=== PATIENT | female | born 1950 | race Caucasian/White ===

== ENCOUNTER → 2017-01-15 | Outpatient (CLI) | payer MEDICARE ==
--- NOTE | 2017-01-15 10:56 | CT ---
EXAMINATION TYPE: CT chest wo con DATE OF EXAM: 01/15/2017 COMPARISON: Chest CT July 14, 2015 and older study January 11, 2015. HISTORY: Follow up to lung nodule per patient. Shortness of breath per order. CT DLP: 390.4 mGycm. Automated Exposure Control for Dose Reduction was Utilized. TECHNIQUE: CT scan of the thorax is performed without IV contrast. FINDINGS: LUNGS: There is redemonstration of mild biapical pleural-parenchymal scarring with slightly more nodu lar scar posterior lateral right upper lung redemonstrated measuring 7 x 6 mm on current study image 13 not significantly changed accounting for technical differences from last 2 studies. There is stabl e 5 x 3 mm subpleural nodule right lower lobe on axial image 37. There is some new peripheral atelect atic change in the right middle lobe periphery near axial image 42 just above diaphragm. No new suspi cious parenchymal nodule or mass is present bilaterally. There is no pleural effusion or pneumothorax seen bilaterally. The tracheobronchial tree is patent. MEDIASTINUM: Lack of IV contrast is noted to limit evaluation for mediastinal and especially hilar ad enopathy. There are no definitive greater than 1 cm hilar or mediastinal lymph nodes. No cardiomega ly or pericardial effusion is seen. OTHER: Liver is diffusely low dense consistent with fatty infiltration. Slight S-shaped scoliotic cur vature is redemonstrated. Multilevel spurring is redemonstrated. There is mild calcified plaque in th e aorta. Stable small hiatal hernia is redemonstrated. Stable mild diffuse low dense thickening left adrenal gland favors benign hyperplasia. IMPRESSION: Overall stable findings, documentation of 2 year stability confirms postinflammatory banda ges or scarring. No suspicious enlarging or new nodule or adenopathy is seen to suggest neoplasm.
== END | disposition home or self-care (01) ==
LOC: RADCTMAIN 09:23
PROVIDERS: ATTEND Internal Medicine Pulmonary Disease
DX: R05 Cough (principal); R06.02 Shortness of breath
CPT/HCPCS: 71250

== ENCOUNTER 2017-10-17 11:40 | Day surgery (SDC) | payer MEDICARE ==
[2017-10-12 15:32] VITALS: BMI 29.2
[~2017-10-17 11:40] MED LIST: DEXAMETHASONE SOD PHOSPHATE 10 MG/ML 1 ML VIAL IV ONE; HYDROmorphone 0.5 MG/0.5 ML SYRINGE IVP PRN; LACTATED RINGERS 1,000 ML IV SCH; MIDAZOLAM 2 MG/2 ML VIAL IV PRN; ONDANSETRON 4 MG/2 ML VIAL IVP ONE; SCOPOLAMINE 1.5MG/72HR PATCH TRANSDERM ONE
[2017-10-17 12:03] VITALS: RESP 18
[2017-10-17] MEDS ORDERED: LACTATED RINGERS 1,000 ML IV ONE (12:03)
[2017-10-17] MEDS ORDERED: LIDOCAINE 1% 20 ML VIAL (10MG/ML) FOR IV START INTRADERMA ONE (12:04)
[2017-10-17 12:06] LABS: Glucose,Whole Blood 141 mg/dL (75-99)
[2017-10-17] MEDS ORDERED: LIDOCAINE 1% INJ 10MG/ML (20 ML MDV) ONE (12:51)
[2017-10-17] MEDS ORDERED: PROPOFOL 10 MG/ML 20 ML VIAL IV ONE (12:51)
[2017-10-17] MEDS ORDERED: fentaNYL (PF) 50 MCG/ML 2 ML AMP ONE (12:51)
--- NOTE | 2017-10-17 13:08 | P.OP ---
Date of Procedure: 10/17/17 Procedure(s) Performed: PREOPERATIVE DIAGNOSES: 1. Right shoulder adhesive capsulitis POSTOPERATIVE DIAGNOSES: 1. Right shoulder adhesive capsulitis PROCEDURES PERFORMED: 1. Right shoulder manipulation under anesthesia ANESTHESIA: Regional plus sedation SORTING GRAPPLE OPERATOR: none COMPLICATIONS: None ESTIMATED BLOOD LOSS: none DISPOSITION: To post-anesthesia care unit INDICATIONS: Mrs. Spangler is a 66-year-old female with a history of adhesive capsulitis involving the right shoulder. The plan for today is manipulation of the shoulder under anesthesia. I have explained the potential risks and complications as being inclusive of, but not limited to: Recurrence of stiffness , fracture, pain, need for open or arthroscopic surgery, blood vessel and/or nerve damage, anesthesia risks, and other risks. The patient wishes to proceed and consent form has been signed. PROCEDURE: After appropriate consent was obtained, the patient was taken to the operating room placed in the supine position. Anesthesia was initiated, and after confirmation of adequate anesthesia, the patient was carefully positioned. Care was taken to make sure that all pressure points were adequately padded. No antibiotics were administered. Using Codman's paradox maneuver, the patient's right shoulder was manipulated progressively with moderate force until final range of motion showed: Forward flexion 180, abduction 180, external rotation with the arm in abduction to 80 , internal rotation with the arm at 90 of abduction to 75. No complications were noted. Patient tolerated the procedure well and taken to recovery room in stable condition.
[2017-10-17] MEDS ORDERED: IV FLUID CONTINUATION 1,000 ML IV ONE (13:35)
[2017-10-17 14:20] VITALS: BP 141/75; PULSE 91
[2017-10-17 14:25] VITALS: TEMP 98.3
[2017-10-17 14:38] LABS: Glucose,Whole Blood 183 mg/dL (75-99)
== END 2017-10-17 15:02 | disposition home or self-care (01) ==
LOC: OR 11:40
PROVIDERS: ATTEND Orthopaedic Surgery
DX: M75.01 Adhesive capsulitis of right shoulder (principal); M54.12 Radiculopathy, cervical region; J45.909 Unspecified asthma, uncomplicated; E11.9 Type 2 diabetes mellitus without complications; I10 Essential (primary) hypertension; R01.1 Cardiac murmur, unspecified; E78.5 Hyperlipidemia, unspecified; K30 Functional dyspepsia; Z79.84 Long term (current) use of oral hypoglycemic drugs; Z79.891 Long term (current) use of opiate analgesic; Z79.51 Long term (current) use of inhaled steroids; Z79.1 Long term (current) use of non-steroidal anti-inflammatories (NSAID); Z79.899 Other long term (current) drug therapy; Z88.0 Allergy status to penicillin; Z91.011 Allergy to milk products
CPT/HCPCS: 23700; J1100; J2405; J2001; J3010; J2704

== ENCOUNTER → 2018-02-04 | Outpatient (CLI) | payer MEDICARE | LOC: RADUSWWP 12:42 | PROVIDERS: ATTEND Family Medicine | DX: I73.9 Peripheral vascular disease, unspecified (principal) | CPT/HCPCS: 93923 ==

== ENCOUNTER → 2018-12-03 | Outpatient (CLI) | payer MEDICARE ==
--- NOTE | 2018-12-04 09:26 | MM ---
Reason for exam: screening (asymptomatic). Last mammogram was performed 9 years and 4 months ago. History: Patient is postmenopausal. Core biopsy of the left breast, 1998. Took estrogen for 3 years beginning at age 50. Physical Findings: A clinical breast exam by your physician is recommended on an annual basis and results should be correlated with mammographic findings. MG 3D Screening Mammo W/Cad Bilateral CC and MLO view(s) were taken. Prior study comparison: May 18, 2015, mammogram, performed at [facility]. July 20, 2009, right breast diagnostic digital nikunj. February 05, 2009, right breast mammogram dig work up. Benign appearing bilateral calcifications. No suspicious abnormality. No significant changes when compared with prior studies. ASSESSMENT: Benign, BI-RAD 2 RECOMMENDATION: Routine screening mammogram of both breasts in 1 year.
== END | disposition home or self-care (01) ==
LOC: RADMAMWWP 09:40
PROVIDERS: ATTEND Family Medicine
DX: Z12.31 Encounter for screening mammogram for malignant neoplasm of breast (principal)
CPT/HCPCS: 77063; 77067

== ENCOUNTER → 2019-06-14 | Outpatient (CLI) | payer MEDICARE ==
--- NOTE | 2019-06-14 13:47 | NM ---
EXAMINATION TYPE: NM hepatobiliary w EF DATE OF EXAM: 06/14/2019 COMPARISON: NONE HISTORY: pain TECHNIQUE: After the intravenous administration of 5.3 mCi Tc 99m Mebrofenin hepatobiliary scintigrap hy is performed. Immediate images post injection. FINDINGS: There is satisfactory initial accumulation of tracer by the liver. The gallbladder is visualized wit hin 20 minutes. The small bowel activity is noted within 22 minutes. At one hour 8 ounces of oral e nsure plus is given to mimic CCK and gallbladder ejection fraction is calculated at 94% IMPRESSION: Hypercontractile gallbladder
== END | disposition home or self-care (01) ==
LOC: RADNMMAIN 09:01
PROVIDERS: ATTEND Family Medicine
DX: K82.8 Other specified diseases of gallbladder (principal)
CPT/HCPCS: 78226; A9537

== ENCOUNTER → 2019-09-09 | Outpatient (CLI) | payer MEDICARE | END | disposition home or self-care (01) | LOC: LABWHC1 11:39 | PROVIDERS: ATTEND Surgery Plastic and Reconstructive Surgery | DX: Z11.59 Encounter for screening for other viral diseases (principal) | CPT/HCPCS: 87635 ==

== ENCOUNTER → 2019-09-11 | Day surgery (SDC) | payer MEDICARE ==
[2019-09-10 09:08] VITALS: BMI 30.2
--- NOTE | 2019-09-10 21:08 | P.GSHP ---
History of Present Illness H&P Date: 09/11/19 CHIEF COMPLAINT: Hematemesis and GI bleed HISTORY OF PRESENT ILLNESS: The patient is a 68-year-old male who presents with hematemesis and gastrointestinal bleeding. Upper and lower endoscopy were offered for further evaluation and management. PAST MEDICAL HISTORY: Please see list. PAST SURGICAL HISTORY: Please see list. MEDICATIONS: Please see list. ALLERGIES: Please see list. SOCIAL HISTORY: No illicit drug use FAMILY HISTORY: No reports of Crohn disease or ulcerative colitis. REVIEW OF ORGAN SYSTEMS: CONSTITUTIONAL: No reports of fevers or chills. PHYSICAL EXAM: VITAL SIGNS: Stable GENERAL: Well-developed pleasant in no acute distress. HEENT: No scleral icterus. Extraocular movements grossly intact. Moist buccal mucosa. NECK: Supple without lymphadenopathy. CHEST: Unlabored respirations. Equal bilateral excursions. CARDIOVASCULAR: Regular rate and rhythm. Distal 2+ pulses. ABDOMEN: Soft, nondistended. MUSCULOSKELETAL: No clubbing, cyanosis, or edema. ASSESSMENT: 1. Hematemesis 2. GI bleed PLAN: 1. Recommend proceeding with an upper and lower endoscopy Past Medical History Past Medical History: Diabetes Mellitus, Hyperlipidemia, Hypertension Additional Past Medical History / Comment(s): IBS History of Any Multi-Drug Resistant Organisms: None Reported Past Surgical History: Bladder Surgery, Hysterectomy Additional Past Surgical History / Comment(s): SINUS SX. COLONOSCOPY Past Anesthesia/Blood Transfusion Reactions: No Reported Reaction Smoking Status: Never smoker - Past Family History Father Family Medical History: Cancer Mother Family Medical History: Cancer Medications and Allergies Home Medications Medication Instructions Recorded Confirmed Type Ertugliflozin Pidolate [Steglatro] 5 mg PO DAILY 10/12/17 09/10/19 History Lisinopril-Hctz 20-25 mg 1 tab PO DAILY 10/12/17 09/10/19 History [Zestoretic 20-25] Pravastatin Sodium [Pravachol] 40 mg PO HS 10/12/17 09/10/19 History glipiZIDE [Glucotrol] 10 mg PO HS 10/12/17 09/10/19 History Docusate [Colace] 200 mg PO DAILY 09/10/19 09/10/19 History Loratadine [Claritin] 10 mg PO DAILY 09/10/19 09/10/19 History metFORMIN HCL 1,000 mg PO HS 09/10/19 09/10/19 History Allergies Allergy/AdvReac Type Severity Reaction Status Date / Time Milk Containing Products Allergy CONGESTION Verified 09/10/19 08:54 [Dairy] Penicillins Allergy Rash/Hives Verified 09/10/19 08:54
[~2019-09-11] MED LIST changes: -DEXAMETHASONE SOD PHOSPHATE 10 MG/ML 1 ML VIAL IV ONE; -HYDROmorphone 0.5 MG/0.5 ML SYRINGE IVP PRN; +LIDOCAINE 1% INJ 10MG/ML (20 ML MDV) ONE; -MIDAZOLAM 2 MG/2 ML VIAL IV PRN; +MIDAZOLAM 2 MG/2 ML VIAL ONE; -ONDANSETRON 4 MG/2 ML VIAL IVP ONE; +PROPOFOL 10 MG/ML 20 ML VIAL IV ONE; -SCOPOLAMINE 1.5MG/72HR PATCH TRANSDERM ONE; +SODIUM CHLORIDE 0.9% 1,000 ML IV ONE
[2019-09-11 07:33] VITALS: RESP 16; TEMP 97.5
[2019-09-11 07:42] LABS: Glucose,Whole Blood 203 mg/dL (75-99)
--- NOTE | 2019-09-11 07:55 | P.PCN ---
Date of Procedure: 09/11/19 Description of Procedure: PREOPERATIVE DIAGNOSIS: Gastrointestinal hemorrhage History of gastric ulcers Epigastric abdominal pain POSTOPERATIVE DIAGNOSIS: Duodenitis Gastritis. OPERATION: Esophagogastroduodenoscopy with biopsies along antrum and duodenum SURGEON: Charo Zhou MD ANESTHESIA: MAC. INDICATIONS: The patient is a 68-year-old female who presents with a history of gastrointestinal bleed and abdominal pain. Benefits and risks of the procedure were described. Informed consent was obtained. DESCRIPTION: The patient was brought into the endoscopy suite and laid in the left lateral decubitus position. An Olympus gastroscope was passed along the posterior oropharynx down to the distal esophagus where the squamocolumnar junction was encountered at 38 cm from the incisors. The stomach was entered and no bile reflux was found. Additional findings are listed below. Biopsies with cold forceps were obtained of the antrum. The first through third portion of the duodenum was examined and remarkable for duodenitis. Retroflexion of the scope confirmed Hill grade 2 lower esophageal valve. The squamocolumnar junction demonstrated LA grade A erosive esophagitis. The stomach was desufflated. The patient tolerated the procedure well. FINDINGS: Squamocolumnar junction 38 cm from the incisors. Diaphragmatic hiatus at 38 cm. Hill grade 2 lower esophageal valve. LA grade A erosive esophagitis. Active duodenitis Chronic gastritis RECOMMENDATIONS: Upper endoscopy as needed.
--- NOTE | 2019-09-11 08:12 | P.PCN ---
Date of Procedure: 09/11/19 Description of Procedure: PREOPERATIVE DIAGNOSIS: Gastrointestinal bleed Change in bowel habits POSTOPERATIVE DIAGNOSIS: Gastrointestinal bleed Change in bowel habits Ascending colon polyp OPERATION: Colonoscopy to the cecum Colonoscopy with cold forceps biopsy, ascending colon SURGEON: Charo Zhou MD. ANESTHESIA: MAC. INDICATIONS: The patient is a 68-year-old female who presents with change in bowel habits including gastrointestinal bleeding. Benefits and risks were described and informed consent was obtained. DESCRIPTION OF PROCEDURE: The patient had undergone Suprep. She had been brought into the operating room and laid in the left lateral decubitus position. After adequate intravenous sedation, the rectum was examined with 2% lidocaine jelly. No external hemorrhoids were encountered. The rectal tone was within normal limits. No lesions were palpated in the rectal vault. The colon was redundant sigmoid colon. An Olympus colonoscope was advanced to the ascending colon. The prep was good. The scope was removed with investigation of the mucosa. No large scattered diverticulosis was encountered. Ascending colon polyp 3 mm was removed with cold forceps biopsy. No evidence of focal colitis was found. Retroflexion of the scope demonstrated grade 1 internal hemorrhoids without active bleeding or inflammation. The colon was desufflated. The patient had tolerated the procedure well. Withdrawal time was over 6 minutes. FINDINGS: Aronchick preparation quality scale 2 (1-5) Internal hemorrhoids, grade 1 No external prolapsed hemorrhoids. No arteriovenous malformations. Ascending colon polyp 3 mm was removed with cold forceps biopsy. No focal colitis. RECOMMENDATIONS: Lower endoscopy in 5 years, 2024 Plan - Discharge Summary Discharge Rx Participant: No New Discharge Prescriptions: No Action glipiZIDE [Glucotrol] 10 mg PO HS Lisinopril-Hctz 20-25 mg [Zestoretic 20-25] 1 tab PO DAILY Pravastatin Sodium [Pravachol] 40 mg PO HS Ertugliflozin Pidolate [Steglatro] 5 mg PO DAILY metFORMIN HCL 1,000 mg PO HS Loratadine [Claritin] 10 mg PO DAILY Docusate [Colace] 200 mg PO DAILY Discharge Medication List Ertugliflozin Pidolate [Steglatro] 5 mg PO DAILY 10/12/17 [History] Lisinopril-Hctz 20-25 mg [Zestoretic 20-25] 1 tab PO DAILY 10/12/17 [History] Pravastatin Sodium [Pravachol] 40 mg PO HS 10/12/17 [History] glipiZIDE [Glucotrol] 10 mg PO HS 10/12/17 [History] Docusate [Colace] 200 mg PO DAILY 09/10/19 [History] Loratadine [Claritin] 10 mg PO DAILY 09/10/19 [History] metFORMIN HCL 1,000 mg PO HS 09/10/19 [History]
--- NOTE | 2019-09-11 08:16 | P.PN ---
Progress Note - Text Progress Note Date: 09/11/19 Prior to procedure, patient had tachycardia heart rate in the 120s. She denies any previous cardiac workup. She reports being nervous. She just completed a prep. Recommend 1 L of IV normal saline bolus prior to discharge.
[2019-09-11 09:12] VITALS: BP 106/65; PULSE 62
== END | disposition home or self-care (01) ==
LOC: ORWHC2ENDO 07:07
PROVIDERS: ATTEND Surgery Plastic and Reconstructive Surgery
DX: K29.50 Unspecified chronic gastritis without bleeding (principal); K29.80 Duodenitis without bleeding; K21.0 Gastro-esophageal reflux disease with esophagitis; K22.10 Ulcer of esophagus without bleeding; K63.5 Polyp of colon; K64.0 First degree hemorrhoids; K58.9 Irritable bowel syndrome, unspecified; I10 Essential (primary) hypertension; E78.5 Hyperlipidemia, unspecified; J45.909 Unspecified asthma, uncomplicated; Z87.11 Personal history of peptic ulcer disease; Z88.0 Allergy status to penicillin; Z91.011 Allergy to milk products; Z79.84 Long term (current) use of oral hypoglycemic drugs; Z79.899 Other long term (current) drug therapy; Z90.710 Acquired absence of both cervix and uterus; Z98.890 Other specified postprocedural states; Z80.9 Family history of malignant neoplasm, unspecified
CPT/HCPCS: 88305; 45380; 43239; J2250; J2001; J2704

== ENCOUNTER → 2020-07-07 | Outpatient (CLI) | payer MEDICARE ==
--- NOTE | 2020-07-07 12:15 | MR ---
EXAMINATION TYPE: MR cervical spine wo/w con DATE OF EXAM: 07/07/2020 COMPARISON: None HISTORY: Pain in neck and shoulders TECHNIQUE: Multiplanar, multisequence images of the cervical spine were acquired utilizing 7.5 mL intravenous Ga davist gadolinium contrast. Diffusion weighted imaging was performed. There is some motion on the exam, artifact or graph C2-C3: No evidence for degenerative disc disease. No disc bulge/herniation or protrusion. No Canal stenosis. Foramina are patent bilaterally. C3-C4: No evidence for degenerative disc disease. No disc bulge/herniation or protrusion. No Canal stenosis. Foramina are patent bilaterally. C4-C5: Left-sided foraminal encroachment is present due to uncovertebral joint hypertrophy and facet arthropathy, circumferential posterior extension endplate disc complex causes anterior mass effect on the thecal sac. There is a focal posterior disc herniation causing contact with the anterior cervica l cord. Only mild central canal stenosis. C5-C6: Posterior extension endplate disc complex contacts the anterior cervical cord. There is mild t o moderate central stenosis. Foraminal encroachment is present left greater than right due to uncover tebral joint hypertrophy and facet arthropathy, suspect there is a lateral disc herniation present, s agittal image #4 C6-C7: No evidence for degenerative disc disease. No disc bulge/herniation or protrusion. No Canal stenosis. Foramina are patent bilaterally. C7-T1: No evidence for degenerative disc disease. No disc bulge/herniation or protrusion. No Canal stenosis. Foramina are patent bilaterally. Cervical segments are intact. There is normal alignment. Cervical spinal cord is of normal signal. Craniovertebral junction relationships are within normal limits. Cervical vertebral bodies show pres erved height and alignment. There is spondylosis C4-5, C5-6 with associated loss of disc height and s ignal, there is some endplate discogenic marrow signal change IMPRESSION: Degenerative disc disease, disc herniations as described
== END ==
LOC: RADMRIMAIN 09:41
PROVIDERS: ATTEND Family Medicine
DX: M50.221 Other cervical disc displacement at C4-C5 level (principal); M50.30 Other cervical disc degeneration, unspecified cervical region
CPT/HCPCS: 72156; A9585

== ENCOUNTER 2020-07-24 19:41 | Emergency (ER) | payer MEDICARE ==
[2020-07-24 19:57] VITALS: TEMP 98.1
[2020-07-24] MEDS ORDERED: SODIUM CHLORIDE 0.9% 1,000 ML IV STA (20:46)
[2020-07-24 21:01] VITALS: RESP 18
[2020-07-24] MEDS ORDERED: BAMLANIVIMAB 700 MG in SODIUM CHLORIDE 0.9% 50 ML IVPB ONE (21:15)
--- NOTE | 2020-07-24 21:42 | ED ---
General Adult HPI - General Chief complaint: Recheck/Abnormal Lab/Rx Stated complaint: Covid Test Source: patient Mode of arrival: ambulatory Limitations: no limitations - History of Present Illness Initial comments: Patient is 69-year-old female presents emergency department as been who is a patient in the trauma bay. Her was found to have Covid and therefore patient is requesting testing. Patient admits to some sinus symptoms however states that this is chronic for her. Denies any new symptoms. No chest pain or shortness of breath. No fevers or chills. Denies any sick contacts. Her presentation modifying factors - Related Data Home Medications Medication Instructions Recorded Confirmed Ertugliflozin Pidolate [Steglatro] 5 mg PO DAILY 10/12/17 09/11/19 Lisinopril-Hctz 20-25 mg 1 tab PO DAILY 10/12/17 09/11/19 [Zestoretic 20-25] Pravastatin Sodium [Pravachol] 40 mg PO HS 10/12/17 09/11/19 glipiZIDE [Glucotrol] 10 mg PO HS 10/12/17 09/11/19 Docusate [Colace] 200 mg PO DAILY 09/10/19 09/11/19 Loratadine [Claritin] 10 mg PO DAILY 09/10/19 09/11/19 metFORMIN HCL 1,000 mg PO HS 09/10/19 09/11/19 Previous Rx's Medication Instructions Recorded Omeprazole [PriLOSEC] 40 mg PO DAILY #14 cap 09/11/19 Allergies Allergy/AdvReac Type Severity Reaction Status Date / Time Milk Containing Products Allergy CONGESTION Verified 07/24/20 19:56 [Dairy] Penicillins Allergy Rash/Hives Verified 07/24/20 19:56 Review of Systems ROS Statement: Those systems with pertinent positive or pertinent negative responses have been documented in the HPI. ROS Other: All systems not noted in ROS Statement are negative. Past Medical History Past Medical History: Asthma, Diabetes Mellitus, Hypertension History of Any Multi-Drug Resistant Organisms: None Reported Past Surgical History: Bladder Surgery, Hysterectomy Past Psychological History: No Psychological Hx Reported Smoking Status: Never smoker Past Alcohol Use History: None Reported Past Drug Use History: None Reported General Exam Limitations: no limitations Course Vital Signs 07/24/20 07/24/20 19:50 20:55 Temperature 98.1 F Pulse Rate 127 H 114 H Respiratory 22 18 Rate Blood Pressure 140/84 136/74 O2 Sat by Pulse 96 97 Oximetry Medical Decision Making - Medical Decision Making Upon arrival patient was placed into room 31. She is swabbed for covid which does come back positive. She does meet criteria for discharged. BAM which is administered. Heart rate is originally to be found high in triage however the patient is hysterically crying as her is critically ill. Patient will be administered Bham. Instructed follow up with her primary care doctor. Return to the emergency room for any new or worsening symptoms - Lab Data Lab Results 07/24/20 Range/Units 19:59 Coronavirus (PCR) Detected A (Not Detectd) Disposition Clinical Impression: COVID-19 Disposition: HOME SELF-CARE Condition: Stable Instructions (If sedation given, give patient instructions): Coronavirus Disease 2019 (COVID-19) Additional Instructions: Please follow-up with your primary care doctor in 2-4 days. Return to the emergency room for any new or worsening symptoms Is patient prescribed a controlled substance at d/c from ED?: No Referrals: Alexys Hurley DO [Primary Care Provider] - 1-2 days Time of Disposition: 21:42
[2020-07-24 22:43] VITALS: BP 112/76; PULSE 105
== END 2020-07-24 22:35 | disposition home or self-care (01) ==
LOC: EC 19:41
DX: U07.1 COVID-19 (principal); J45.909 Unspecified asthma, uncomplicated; E11.9 Type 2 diabetes mellitus without complications; I10 Essential (primary) hypertension
CPT/HCPCS: 87635; 99283; 96374; 96361; Q0239

== ENCOUNTER 2020-08-04 10:18 | Emergency (ER) | payer MEDICARE ==
--- NOTE | 2020-08-04 13:52 | XR ---
EXAMINATION TYPE: XR chest 2V DATE OF EXAM: 08/04/2020 COMPARISON: NONE TECHNIQUE: PA and lateral views submitted. HISTORY: Shortness of breath FINDINGS: The lungs are clear and there is no pneumothorax, pleural effusion, or focal pneumonia. Coarsened i nterstitial pattern. Degenerative change of the spine. Hyperinflation. Arthropathy of the shoulders. Biapical pleural thickening. Heart size is normal. IMPRESSION: 1. Coarsened interstitium correlate for interstitial pneumonitis. Chronic interstitial lung disease i n the differential diagnosis..
--- NOTE | 2020-08-04 14:11 | ED ---
SOB HPI - General Chief Complaint: Shortness of Breath Stated Complaint: Covid+/SOB Time Seen by Provider: 08/04/20 13:23 Source: patient Mode of arrival: wheelchair Limitations: no limitations - History of Present Illness Initial Comments: Patient is a 69-year-old female with history of asthma, diabetes, hypertension, presenting to the emergency Department with complaints of worsening shortness of breath and fatigue over the past few days. Patient states she was diagnosed with Covid on 07/24/2020. She was given Covid antiviral infusion on that day as well. She states she got tested because her was diagnosed with Covid and was in the ER in serious condition. She states at that time her only symptom was fatigue. Appetite has been low, she has been able to tolerate water and soups. She states over the past 2-3 days she's been having a little bit of diarrhea. She denies any chest pains, no abdominal pains. She does admit to some mild nausea no vomiting. She states that her did pass away today from Covid complications and that her family wanted her to be seen and checked out. She has no further complaints at this time. Upon arrival to the ER, she is afebrile, slightly tachycardia at 102, 96% on room air. - Related Data Home Medications Medication Instructions Recorded Confirmed Ertugliflozin Pidolate [Steglatro] 5 mg PO DAILY 10/12/17 09/11/19 Lisinopril-Hctz 20-25 mg 1 tab PO DAILY 10/12/17 09/11/19 [Zestoretic 20-25] Pravastatin Sodium [Pravachol] 40 mg PO HS 10/12/17 09/11/19 glipiZIDE [Glucotrol] 10 mg PO HS 10/12/17 09/11/19 Docusate [Colace] 200 mg PO DAILY 09/10/19 09/11/19 Loratadine [Claritin] 10 mg PO DAILY 09/10/19 09/11/19 metFORMIN HCL 1,000 mg PO HS 09/10/19 09/11/19 Previous Rx's Medication Instructions Recorded Omeprazole [PriLOSEC] 40 mg PO DAILY #14 cap 09/11/19 Allergies Allergy/AdvReac Type Severity Reaction Status Date / Time Milk Containing Products Allergy CONGESTION Verified 08/04/20 13:19 [Dairy] Penicillins Allergy Rash/Hives Verified 08/04/20 13:19 Review of Systems ROS Statement: Those systems with pertinent positive or pertinent negative responses have been documented in the HPI. ROS Other: All systems not noted in ROS Statement are negative. Past Medical History Past Medical History: Asthma, Diabetes Mellitus, Hypertension History of Any Multi-Drug Resistant Organisms: None Reported Past Surgical History: Bladder Surgery, Hysterectomy Past Psychological History: No Psychological Hx Reported Smoking Status: Never smoker Past Alcohol Use History: None Reported Past Drug Use History: None Reported General Exam - General Exam Comments Initial Comments: GENERAL: Patient is well-developed and well-nourished. Patient is nontoxic and in no acute distress. HEAD: Atraumatic, normocephalic. EYES: Pupils equal round and reactive to light, extraocular movements intact, sclera anicteric, conjunctiva are normal. Eyelids were unremarkable. ENT: TMs normal, nares patent, oropharynx clear without exudates. Moist mucous membranes. NECK: Normal range of motion, supple without lymphadenopathy or JVD. LUNGS: Unlabored respirations. Breath sounds clear to auscultation bilaterally and equal. No wheezes rales or rhonchi. HEART: Regular rate and rhythm without murmurs, rubs or gallops. ABDOMEN: Soft, nontender, normoactive bowel sounds. No guarding, no rebound. No masses appreciated. : Deferred MUSCULOSKELETAL: Normal extremities with adequate strength and normal range of motion, no pitting or edema. No clubbing or cyanosis. NEUROLOGICAL: Patient is alert and oriented x 3. Motor and sensory are also intact. Cranial nerves II through XII grossly intact. Symmetrical smile. Normal speech, normal gait. PSYCH: Normal mood, normal affect. SKIN: Warm, Dry, normal turgor, no rashes or lesions noted. Limitations: no limitations Course Vital Signs 08/04/20 08/04/20 08/04/20 13:14 14:50 17:08 Temperature 98.4 F 98.0 F 98.1 F Pulse Rate 102 H 92 89 Respiratory 18 20 18 Rate Blood Pressure 109/63 103/59 127/68 O2 Sat by Pulse 96 96 97 Oximetry Medical Decision Making - Medical Decision Making Patient is a 69-year-old female with history of asthma, hypertension and diabetes here for increasing shortness of breath over the last few days. Patient was diagnosed with Covid on 07/24/2020 after her tested positive. Patient did receive Covid antiviral infusion on that day. Patient's today from Covid complications and family wanted patient to be seen. Her vital signs are stable. Labs show stable white count, patient is dehydrated with sodium 131, BUN and creatinine slightly elevated from baseline, lactic acid is normal. LDH and CRP are still elevated consistent with covid infection. Urine is normal. Chest xray shows interstitial pneumonitis. Vitals have remained stable in the ER, 96-97% on RA. Patient given 1 L of fluids and able to tolerate water and snacks. Pt is stable for discharge. Return parameters were discussed with the patient and family and they verbalized understanding. Case discussed with Dr. Sherman. - Lab Data Result diagrams: 08/04/20 14:15 08/04/20 14:15 Lab Results 08/04/20 08/04/20 08/04/20 Range/Units 14:15 14:15 14:15 WBC 10.3 (3.8-10.6) k/uL RBC 5.28 (3.80-5.40) m/uL Hgb 14.5 (11.4-16.0) gm/dL Hct 41.6 (34.0-46.0) % MCV 78.9 L (80.0-100.0) fL MCH 27.5 (25.0-35.0) pg MCHC 34.8 (31.0-37.0) g/dL RDW 15.2 (11.5-15.5) % Plt Count 308 (150-450) k/uL MPV 7.2 Neutrophils % 91 % Lymphocytes % 4 % Monocytes % 3 % Eosinophils % 1 % Basophils % 0 % Neutrophils # 9.3 H (1.3-7.7) k/uL Lymphocytes # 0.5 L (1.0-4.8) k/uL Monocytes # 0.3 (0-1.0) k/uL Eosinophils # 0.1 (0-0.7) k/uL Basophils # 0.0 (0-0.2) k/uL PT 10.2 (9.0-12.0) sec INR 0.9 (<1.2) APTT 24.0 (22.0-30.0) sec D-Dimer 0.32 (<0.60) mg/L FEU Sodium 131 L (137-145) mmol/L Potassium 4.1 (3.5-5.1) mmol/L Chloride 93 L (98-107) mmol/L Carbon Dioxide 21 L (22-30) mmol/L Anion Gap 17 mmol/L BUN 44 H (7-17) mg/dL Creatinine 1.23 H (0.52-1.04) mg/dL Est GFR (CKD-EPI)AfAm 52 (>60 ml/min/1.73 sqM) Est GFR (CKD-EPI)NonAf 45 (>60 ml/min/1.73 sqM) Glucose 124 H (74-99) mg/dL Plasma Lactic Acid Santosh (0.7-2.0) mmol/L Calcium 9.1 (8.4-10.2) mg/dL Magnesium 2.1 (1.6-2.3) mg/dL Total Bilirubin 0.5 (0.2-1.3) mg/dL AST 42 H (14-36) U/L ALT 30 (4-34) U/L Alkaline Phosphatase 53 (38-126) U/L Lactate Dehydrogenase 832 H (313-618) U/L C-Reactive Protein 153.2 H (<10.0) mg/L Total Protein 7.3 (6.3-8.2) g/dL Albumin 4.1 (3.5-5.0) g/dL Urine Color Urine Appearance (Clear) Urine pH (5.0-8.0) Ur Specific [place] (1.001-1.035) Urine Protein (Negative) Urine Glucose (UA) (Negative) Urine Ketones (Negative) Urine Blood (Negative) Urine Nitrite (Negative) Urine Bilirubin (Negative) Urine Urobilinogen (<2.0) mg/dL Ur Leukocyte Esterase (Negative) Urine WBC (0-5) /hpf Ur Squamous Epith Cells (0-4) /hpf Amorphous Sediment (None) /hpf Urine Bacteria (None) /hpf 08/04/20 08/04/20 Range/Units 14:15 16:00 WBC (3.8-10.6) k/uL RBC (3.80-5.40) m/uL Hgb (11.4-16.0) gm/dL Hct (34.0-46.0) % MCV (80.0-100.0) fL MCH (25.0-35.0) pg MCHC (31.0-37.0) g/dL RDW (11.5-15.5) % Plt Count (150-450) k/uL MPV Neutrophils % % Lymphocytes % % Monocytes % % Eosinophils % % Basophils % % Neutrophils # (1.3-7.7) k/uL Lymphocytes # (1.0-4.8) k/uL Monocytes # (0-1.0) k/uL Eosinophils # (0-0.7) k/uL Basophils # (0-0.2) k/uL PT (9.0-12.0) sec INR (<1.2) APTT (22.0-30.0) sec D-Dimer (<0.60) mg/L FEU Sodium (137-145) mmol/L Potassium (3.5-5.1) mmol/L Chloride (98-107) mmol/L Carbon Dioxide (22-30) mmol/L Anion Gap mmol/L BUN (7-17) mg/dL Creatinine (0.52-1.04) mg/dL Est GFR (CKD-EPI)AfAm (>60 ml/min/1.73 sqM) Est GFR (CKD-EPI)NonAf (>60 ml/min/1.73 sqM) Glucose (74-99) mg/dL Plasma Lactic Acid Santosh 1.4 (0.7-2.0) mmol/L Calcium (8.4-10.2) mg/dL Magnesium (1.6-2.3) mg/dL Total Bilirubin (0.2-1.3) mg/dL AST (14-36) U/L ALT (4-34) U/L Alkaline Phosphatase (38-126) U/L Lactate Dehydrogenase (313-618) U/L C-Reactive Protein (<10.0) mg/L Total Protein (6.3-8.2) g/dL Albumin (3.5-5.0) g/dL Urine Color Light Yellow Urine Appearance Clear (Clear) Urine pH 5.5 (5.0-8.0) Ur Specific [place] 1.005 (1.001-1.035) Urine Protein 1+ H (Negative) Urine Glucose (UA) 3+ H (Negative) Urine Ketones Trace H (Negative) Urine Blood Trace H (Negative) Urine Nitrite Negative (Negative) Urine Bilirubin Negative (Negative) Urine Urobilinogen <2.0 (<2.0) mg/dL Ur Leukocyte Esterase Negative (Negative) Urine WBC 1 (0-5) /hpf Ur Squamous Epith Cells <1 (0-4) /hpf Amorphous Sediment Rare H (None) /hpf Urine Bacteria Rare H (None) /hpf - EKG Data EKG Comments: Normal sinus rhythm, no signs of acute ischemia. No previous to compare to. Ventricular rate 95, DC interval 160, QT 342. Disposition Clinical Impression: COVID-19 Disposition: HOME SELF-CARE Condition: Stable Instructions (If sedation given, give patient instructions): Coronavirus Disease 2019 (COVID-19) Additional Instructions: Please return to the Emergency Department if symptoms worsen or any other concerns. Continue to increase your fluid intake, increase your diet as tolerated. Follow-up with your regular family doctor. Is patient prescribed a controlled substance at d/c from ED?: No Referrals: Alexys Hurley DO [Primary Care Provider] - 1-2 days Time of Disposition: 16:43
[2020-08-04 14:27] LABS: Basophils % (A) 0 %; Eosinophils # (A) 0.1 k/uL (0-0.7); Eosinophils % (A) 1 %; HCT 41.6 % (34.0-46.0); HGB 14.5 gm/dL (11.4-16.0); Lymphocytes # (A) 0.5 k/uL (1.0-4.8); Lymphocytes % (A) 4 %; MCH 27.5 pg (25.0-35.0); MCHC 34.8 g/dL (31.0-37.0); MCV 78.9 fL (80.0-100.0); Mean Platelet Volume 7.2; Monocytes # (A) 0.3 k/uL (0-1.0); Monocytes % (A) 3 %; Neutrophils # (A) 9.3 k/uL (1.3-7.7); Neutrophils % (A) 91 %; Platelet Count 308 k/uL (150-450); RBC 5.28 m/uL (3.80-5.40); RDW 15.2 % (11.5-15.5); WBC 10.3 k/uL (3.8-10.6)
[2020-08-04 14:44] LABS: D-Dimer 0.32 mg/L FEU (<0.60); INR 0.9 (<1.2); Prothrombin Time 10.2 sec (9.0-12.0)
[2020-08-04 14:46] LABS: Albumin 4.1 g/dL (3.5-5.0); Calcium 9.1 mg/dL (8.4-10.2); Magnesium 2.1 mg/dL (1.6-2.3); Potassium 4.1 mmol/L (3.5-5.1); Total Bilirubin 0.5 mg/dL (0.2-1.3); Total Protein 7.3 g/dL (6.3-8.2)
[2020-08-04 15:02] LABS: C Reactive Protein 153.2 mg/L (<10.0)
[2020-08-04] MEDS ORDERED: SODIUM CHLORIDE 0.9% 1,000 ML IV STA (15:04)
[2020-08-04 16:31] LABS: Amorphous Sediment,Urine Rare /hpf; Appearance,Urine Clear (Clear); Bacteria,Urine Rare /hpf; Bilirubin,Urine Negative (Negative); Blood,Urine Trace (Negative); Color,Urine Light Yellow; Glucose,Urine (UA) 3+ (Negative); Ketones,Urine Trace (Negative); Leukocyte Esterase,Urine Negative (Negative); Nitrite,Urine Negative (Negative); PH, Urine 5.5 (5.0-8.0); Protein,Urine 1+ (Negative); Specific Gravity,Urine 1.005 (1.001-1.035); Squamous Epithelial Cell,Urine <1 /hpf (0-4); Urobilinogen,Urine <2.0 mg/dL (<2.0); WBC,Urine 1 /hpf (0-5)
[2020-08-04 17:09] VITALS: BP 127/68; PULSE 89; RESP 18; TEMP 98.1
== END 2020-08-04 17:37 | disposition home or self-care (01) ==
LOC: EC 10:18
DX: U07.1 COVID-19 (principal); J45.909 Unspecified asthma, uncomplicated; E11.9 Type 2 diabetes mellitus without complications; I10 Essential (primary) hypertension; Z88.0 Allergy status to penicillin; Z79.84 Long term (current) use of oral hypoglycemic drugs
CPT/HCPCS: 36415; 71046; 80053; 81001; 83605; 83615; 83735; 85025; 85379; 85610; 85730; 86140; 93005; 96360; 96361; 99285

== ENCOUNTER 2021-03-09 23:47 | Observation (INO) | payer MEDICARE ==
[2021-03-09] MEDS ORDERED: SODIUM CHLORIDE 0.9% 1,000 ML IV STA (23:56)
[2021-03-10] MEDS ORDERED: LORazepam 2 MG/ML INJ IV STA (00:21)
[2021-03-10 00:32] LABS: Basophils % (A) 0 %; Eosinophils # (A) 0.1 k/uL (0-0.7); Eosinophils % (A) 1 %; HCT 45.7 % (34.0-46.0); HGB 15.5 gm/dL (11.4-16.0); Lymphocytes # (A) 1.5 k/uL (1.0-4.8); Lymphocytes % (A) 16 %; MCH 27.6 pg (25.0-35.0); MCHC 33.9 g/dL (31.0-37.0); MCV 81.4 fL (80.0-100.0); Mean Platelet Volume 7.7; Monocytes # (A) 0.5 k/uL (0-1.0); Monocytes % (A) 5 %; Neutrophils # (A) 7.2 k/uL (1.3-7.7); Neutrophils % (A) 75 %; Platelet Count 348 k/uL (150-450); RBC 5.61 m/uL (3.80-5.40); RDW 15.5 % (11.5-15.5); WBC 9.6 k/uL (3.8-10.6)
[2021-03-10 00:47] LABS: Partial Thromboplastin Time 22.8 sec (22.0-30.0); Prothrombin Time 10.5 sec (9.0-12.0)
[2021-03-10 00:51] LABS: Appearance,Urine Clear (Clear); Bacteria,Urine Occasional /hpf; Bilirubin,Urine Negative (Negative); Blood,Urine Negative (Negative); Color,Urine Light Yellow; Glucose,Urine (UA) 4+ (Negative); Ketones,Urine Negative (Negative); Leukocyte Esterase,Urine Large (Negative); Mucus,Urine Rare /hpf; Nitrite,Urine Negative (Negative); Protein,Urine Trace (Negative); RBC,Urine 2 /hpf (0-5); Specific Gravity,Urine 1.017 (1.001-1.035); Squamous Epithelial Cell,Urine <1 /hpf (0-4); Urobilinogen,Urine <2.0 mg/dL (<2.0); WBC,Urine 26 /hpf (0-5)
--- NOTE | 2021-03-10 00:53 | ED ---
Altered Mental Status HPI - General Chief Complaint: Recheck/Abnormal Lab/Rx Stated Complaint: Confusion Time Seen by Provider: 03/09/21 23:56 Source: patient, EMS Mode of arrival: EMS Limitations: no limitations - Related Data Home Medications Medication Instructions Recorded Confirmed Ertugliflozin Pidolate [Steglatro] 5 mg PO DAILY 10/12/17 09/11/19 Lisinopril-Hctz 20-25 mg 1 tab PO DAILY 10/12/17 09/11/19 [Zestoretic 20-25] Pravastatin Sodium [Pravachol] 40 mg PO HS 10/12/17 09/11/19 glipiZIDE [Glucotrol] 10 mg PO HS 10/12/17 09/11/19 Docusate [Colace] 200 mg PO DAILY 09/10/19 09/11/19 Loratadine [Claritin] 10 mg PO DAILY 09/10/19 09/11/19 metFORMIN HCL [Glucophage] 1,000 mg PO HS 09/10/19 09/11/19 Previous Rx's Medication Instructions Recorded Omeprazole [PriLOSEC] 40 mg PO DAILY #14 cap 09/11/19 Allergies Allergy/AdvReac Type Severity Reaction Status Date / Time Milk Containing Products Allergy CONGESTION Verified 08/04/20 13:19 [Dairy] Penicillins Allergy Rash/Hives Verified 08/04/20 13:19 Review of Systems ROS Statement: Those systems with pertinent positive or pertinent negative responses have been documented in the HPI. ROS Other: All systems not noted in ROS Statement are negative. Past Medical History Past Medical History: Asthma, Diabetes Mellitus, Hypertension History of Any Multi-Drug Resistant Organisms: None Reported Past Surgical History: Bladder Surgery, Hysterectomy Past Psychological History: No Psychological Hx Reported Smoking Status: Never smoker Past Alcohol Use History: None Reported Past Drug Use History: None Reported General Exam Limitations: no limitations Course Vital Signs 03/09/21 03/10/21 23:50 00:15 Temperature 97.8 F Pulse Rate 107 H Respiratory 19 Rate Blood Pressure 184/87 O2 Sat by Pulse 98 Oximetry Medical Decision Making - Lab Data Result diagrams: 03/10/21 00:03 03/10/21 00:03 Lab Results 03/10/21 03/10/21 03/10/21 Range/Units 00:03 00:03 00:03 WBC 9.6 (3.8-10.6) k/uL RBC 5.61 H (3.80-5.40) m/uL Hgb 15.5 (11.4-16.0) gm/dL Hct 45.7 (34.0-46.0) % MCV 81.4 (80.0-100.0) fL MCH 27.6 (25.0-35.0) pg MCHC 33.9 (31.0-37.0) g/dL RDW 15.5 (11.5-15.5) % Plt Count 348 (150-450) k/uL MPV 7.7 Neutrophils % 75 % Lymphocytes % 16 % Monocytes % 5 % Eosinophils % 1 % Basophils % 0 % Neutrophils # 7.2 (1.3-7.7) k/uL Lymphocytes # 1.5 (1.0-4.8) k/uL Monocytes # 0.5 (0-1.0) k/uL Eosinophils # 0.1 (0-0.7) k/uL Basophils # 0.0 (0-0.2) k/uL PT 10.5 (9.0-12.0) sec INR 1.0 (<1.2) APTT 22.8 (22.0-30.0) sec Sodium (137-145) mmol/L Potassium (3.5-5.1) mmol/L Chloride (98-107) mmol/L Carbon Dioxide (22-30) mmol/L Anion Gap mmol/L BUN (7-17) mg/dL Creatinine (0.52-1.04) mg/dL Est GFR (CKD-EPI)AfAm (>60 ml/min/1.73 sqM) Est GFR (CKD-EPI)NonAf (>60 ml/min/1.73 sqM) Glucose (74-99) mg/dL Plasma Lactic Acid Santosh 1.9 (0.7-2.0) mmol/L Calcium (8.4-10.2) mg/dL Total Bilirubin (0.2-1.3) mg/dL AST (14-36) U/L ALT (4-34) U/L Alkaline Phosphatase (38-126) U/L Ammonia <9 (<30) umol/L Total Protein (6.3-8.2) g/dL Albumin (3.5-5.0) g/dL Urine Color Urine Appearance (Clear) Urine pH (5.0-8.0) Ur Specific [place] (1.001-1.035) Urine Protein (Negative) Urine Glucose (UA) (Negative) Urine Ketones (Negative) Urine Blood (Negative) Urine Nitrite (Negative) Urine Bilirubin (Negative) Urine Urobilinogen (<2.0) mg/dL Ur Leukocyte Esterase (Negative) Urine RBC (0-5) /hpf Urine WBC (0-5) /hpf Ur Squamous Epith Cells (0-4) /hpf Urine Bacteria (None) /hpf Urine Mucus (None) /hpf 03/10/21 03/10/21 Range/Units 00:03 00:03 WBC (3.8-10.6) k/uL RBC (3.80-5.40) m/uL Hgb (11.4-16.0) gm/dL Hct (34.0-46.0) % MCV (80.0-100.0) fL MCH (25.0-35.0) pg MCHC (31.0-37.0) g/dL RDW (11.5-15.5) % Plt Count (150-450) k/uL MPV Neutrophils % % Lymphocytes % % Monocytes % % Eosinophils % % Basophils % % Neutrophils # (1.3-7.7) k/uL Lymphocytes # (1.0-4.8) k/uL Monocytes # (0-1.0) k/uL Eosinophils # (0-0.7) k/uL Basophils # (0-0.2) k/uL PT (9.0-12.0) sec INR (<1.2) APTT (22.0-30.0) sec Sodium 133 L (137-145) mmol/L Potassium 4.1 (3.5-5.1) mmol/L Chloride 94 L (98-107) mmol/L Carbon Dioxide 23 (22-30) mmol/L Anion Gap 16 mmol/L BUN 27 H (7-17) mg/dL Creatinine 0.90 (0.52-1.04) mg/dL Est GFR (CKD-EPI)AfAm 75 (>60 ml/min/1.73 sqM) Est GFR (CKD-EPI)NonAf 65 (>60 ml/min/1.73 sqM) Glucose 211 H (74-99) mg/dL Plasma Lactic Acid Santosh (0.7-2.0) mmol/L Calcium 10.2 (8.4-10.2) mg/dL Total Bilirubin 0.5 (0.2-1.3) mg/dL AST 22 (14-36) U/L ALT 19 (4-34) U/L Alkaline Phosphatase 54 (38-126) U/L Ammonia (<30) umol/L Total Protein 8.4 H (6.3-8.2) g/dL Albumin 5.1 H (3.5-5.0) g/dL Urine Color Light Yellow Urine Appearance Clear (Clear) Urine pH 5.0 (5.0-8.0) Ur Specific [place] 1.017 (1.001-1.035) Urine Protein Trace H (Negative) Urine Glucose (UA) 4+ H (Negative) Urine Ketones Negative (Negative) Urine Blood Negative (Negative) Urine Nitrite Negative (Negative) Urine Bilirubin Negative (Negative) Urine Urobilinogen <2.0 (<2.0) mg/dL Ur Leukocyte Esterase Large H (Negative) Urine RBC 2 (0-5) /hpf Urine WBC 26 H (0-5) /hpf Ur Squamous Epith Cells <1 (0-4) /hpf Urine Bacteria Occasional H (None) /hpf Urine Mucus Rare H (None) /hpf - EKG Data -: EKG Interpreted by Me (EKG is sinus 75-190 QRS 82 QTC 480) Disposition Clinical Impression: UTI (urinary tract infection), AMS (altered mental status), Weakness Disposition: ADMITTED IP TO THIS HOSP Condition: Fair Is patient prescribed a controlled substance at d/c from ED?: No Referrals: Alexys Hurley DO [Primary Care Provider] - 1-2 days
--- NOTE | 2021-03-10 01:00 | XR ---
EXAMINATION TYPE: XR chest 2V DATE OF EXAM: 03/10/2021 COMPARISON: 08/04/2020 HISTORY: Pain TECHNIQUE: 2 views FINDINGS: Heart and mediastinum are normal. Lungs are clear. Diaphragm is normal. Bony thorax is inta ct. IMPRESSION: Normal chest. There is clearing of the minimal interstitial infiltrate in the peripheral lung rahman compared to old exam.
--- NOTE | 2021-03-10 01:02 | CT ---
EXAMINATION TYPE: CT brain wo con DATE OF EXAM: 03/10/2021 COMPARISON: None HISTORY: AMS CT DLP: 1099.4 mGycm Automated exposure control for dose reduction was used. Ventricles have normal size. There is no mass effect nor midline shift. There is no sign of intracran ial hemorrhage. There is mild cerebral atrophy. Calvarium is intact. IMPRESSION: Negative unenhanced head CT scan.
[2021-03-10 01:18] LABS: Lactic Acid, Venous 1.9 mmol/L (0.7-2.0)
[2021-03-10 01:20] LABS: Albumin 5.1 g/dL (3.5-5.0); Calcium 10.2 mg/dL (8.4-10.2); Potassium 4.1 mmol/L (3.5-5.1); Total Bilirubin 0.5 mg/dL (0.2-1.3); Total Protein 8.4 g/dL (6.3-8.2)
[2021-03-10] MEDS ORDERED: MORPHINE SULFATE 4 MG/ML SYRINGE IV PRN (01:22)
[2021-03-10] MEDS ORDERED: LORazepam 2 MG/ML INJ IV PRN (01:22)
[2021-03-10] MEDS ORDERED: ACETAMINOPHEN TAB 325 MG TAB PO PRN (01:22)
[2021-03-10] MEDS ORDERED: NALOXONE 0.4 MG/ML 1 ML VIAL IV PRN (01:22)
[2021-03-10] MEDS: SODIUM CHLORIDE 0.9% 1,000 ML IV SCH ×2 (03:09→17:16)
[2021-03-10 07:33] LABS: Glucose,Whole Blood 144 mg/dL (75-99)
--- NOTE | 2021-03-10 13:21 | P.HPIM ---
<Francis Landaverde - Last Filed: 03/10/21 13:00> History of Present Illness H&P Date: 03/10/21 History of Presenting Illness: Patient is a very pleasant 70-year-old female with a past medical history of hypertension and [id number] diabetes mellitus. She presented to the emergency department with a chief complaint of alteration in mental status. Patient reportedly began suddenly not feeling like herself yesterday morning and states this progressively seem to worsen throughout the day. Patient states that the best way to describe it is "I just felt confused and off, not like myself." Patient states she lives at home with her son and [id number], walks with a cane, and lost her earlier this year to Covid 19 virus infection. Patient was seen and fully evaluated in the emergency department. CT head was completed and negative for acute intercranial process. CBC, coags, and liver profile unremarkable. BMP revealed mild hyponatremia with sodium of 133, mild hypochloremia with chloride of 94, prerenal azotemia with BUN of 27, and hyperglycemia with glucose of 211. Covid PCR negative. Urinalysis positive for glucose, ketones, leukocytes, and 26 WBCs. Upon physical examination patient reports feeling much better and was alert to person, place, time, and situation. Patient denied having any pain or discomfort. She denied having any headache, lightheadedness, dizziness, chest pain, palpitations, shortness of breath, dyspnea with exertion, abdominal pain, nausea, vomiting, or any other complaints. Patient does report that she does frequently get UTIs secondary to bladder prolapse. Review of systems: Pertinent positives and negatives as discussed in HPI, a complete review of systems was performed and all other systems are negative. Physical exam: Vital signs reviewed and stable. General: Nontoxic, no distress and appears stated age. Derm: Skin warm and dry, normal coloration for ethnicity. Head: Atraumatic, normocephalic and symmetric. Eyes: EOMs intact, no lid lag, and anicteric sclera Mouth: no lip lesions, mucus membranes moist Cardiovascular: regular rate and rhythm with normal S1S2, no murmur, positive posterior tibial pulses bilaterally, and cap refill < 2 seconds. Lungs: Respirations even, regular, and unlabored on room air. Lungs CTA bilaterally, no rhonchi, no rales, no wheezing, and no accessory muscle usage. Abdominal: soft, nontender to palpation, no guarding, no appreciable organomegaly Ext: ROM intact. No gross muscle atrophy, no edema, no contractures Neuro: Speech clear, face symmetrical and CN II-XII grossly intact with no noted focal neuro deficits Psych: Alert and oriented to person, place, time, and situation. Appropriate and pleasant affect. Assessment and Plan of Care: Acute encephalopathy secondary to unclear etiology, possibly secondary to underlying UTI versus TIA We will work patient up for possible TIA and treat for mild UTI. Echocardiogram Carotid Dopplers MRI brain Consult neurology Neuro checks every 4 hours Aspirin 325 mg by mouth daily along with atorvastatin 80 mg nightly DVT prophylaxis with Lovenox Treatment of underlying UTI with Rocephin 1 g daily pending urine culture results. Bladder management. Type II bmk-whazsgt-wtoyznvyn diabetes mellitus with hyperglycemia Hold glipizide, metformin, and Actos. Place patient on glycemic protocol with NovoLog sliding scale. Hemoglobin A1c with a.m. labs. Prerenal azotemia with BUN of 27 -Patient received gentle hydration with IV fluids, we will continue to monitor and reevaluate function with a.m. labs. Pseudohyponatremia, sodium 133 glucose 211 corrected sodium 135 Hypertension Monitor vital signs and continue daily medication regimen with lisinopril. The patient is admitted with an anticipated less than 2 midnight stay for evaluation of alteration in mental status. CODE STATUS: Full code DVT prophylaxis: Lovenox Discussed with: Patient and RN Anticipated discharge date: Clinical course to determine Anticipated discharge place: Home A total of 45 minutes was spent on the care of this complex patient more than 50% of the time was spent in counseling and care coordination. Past Medical History Past Medical History: Asthma, Diabetes Mellitus, Hypertension History of Any Multi-Drug Resistant Organisms: None Reported Past Surgical History: Bladder Surgery, Hysterectomy Past Anesthesia/Blood Transfusion Reactions: No Reported Reaction Past Psychological History: No Psychological Hx Reported Smoking Status: Never smoker Past Alcohol Use History: None Reported Past Drug Use History: None Reported Medications and Allergies Home Medications Medication Instructions Recorded Confirmed Type Lisinopril-Hctz 20-25 mg 1 tab PO DAILY 10/12/17 03/10/21 History [Zestoretic 20-25] glipiZIDE [Glucotrol] 10 mg PO BID 10/12/17 03/10/21 History metFORMIN HCL [Glucophage] 1,000 mg PO W/SUPPER 09/10/19 03/10/21 History Pantoprazole [Protonix] 40 mg PO DAILY 03/10/21 03/10/21 History Pioglitazone [Actos] 30 mg PO DAILY 03/10/21 03/10/21 History Allergies Allergy/AdvReac Type Severity Reaction Status Date / Time Milk Containing Products Allergy CONGESTION Verified 03/10/21 10:03 [Dairy] Penicillins Allergy Rash/Hives Verified 03/10/21 10:03 Physical Exam Vitals: Vital Signs Temp Pulse Pulse Resp BP BP Pulse Ox 03/10/21 02:37 98.1 F 97 16 152/90 97 03/10/21 01:47 70 17 154/75 97 03/10/21 00:15 97.8 F 03/09/21 23:50 107 H 19 184/87 98 Intake and Output 03/09/21 03/10/21 03/10/21 22:59 06:59 14:59 Other: # Voids 1 Weight 74.843 kg Results CBC & Chem 7: 03/10/21 00:03 03/10/21 00:03 Labs: Abnormal Lab Results - Last 24 Hours (Table) 03/10/21 03/10/21 03/10/21 Range/Units 00:03 00:03 00:03 RBC 5.61 H (3.80-5.40) m/uL Sodium 133 L (137-145) mmol/L Chloride 94 L (98-107) mmol/L BUN 27 H (7-17) mg/dL Glucose 211 H (74-99) mg/dL POC Glucose (mg/dL) (75-99) mg/dL Total Protein 8.4 H (6.3-8.2) g/dL Albumin 5.1 H (3.5-5.0) g/dL Urine Protein Trace H (Negative) Urine Glucose (UA) 4+ H (Negative) Ur Leukocyte Esterase Large H (Negative) Urine WBC 26 H (0-5) /hpf Urine Bacteria Occasional H (None) /hpf Urine Mucus Rare H (None) /hpf 03/10/21 Range/Units 07:31 RBC (3.80-5.40) m/uL Sodium (137-145) mmol/L Chloride (98-107) mmol/L BUN (7-17) mg/dL Glucose (74-99) mg/dL POC Glucose (mg/dL) 144 H (75-99) mg/dL Total Protein (6.3-8.2) g/dL Albumin (3.5-5.0) g/dL Urine Protein (Negative) Urine Glucose (UA) (Negative) Ur Leukocyte Esterase (Negative) Urine WBC (0-5) /hpf Urine Bacteria (None) /hpf Urine Mucus (None) /hpf Thrombosis Risk Factor Assmnt - Choose All That Apply Any of the Below Risk Factors Present?: Yes Each Factor Represents 1 point: Obesity (BMI >25) Other Risk Factors: Yes Each Risk Factor Represents 2 Points: Age 61-74 years Other congenital or acquired thrombophilia - If yes, enter type in comment: No Thrombosis Risk Factor Assessment Total Risk Factor Score: 3 Thrombosis Risk Factor Assessment Level: Moderate Risk <Vianca Ang - Last Filed: 03/10/21 14:13> History of Present Illness Patient seen and examined independently. Patient was also seen by Francis Landaverde NP and case was discussed. I am in agreement with subjective, physical exam, assessment and plan as written above and amended below. Patient seen and examined at bedside with daughters present. Apparently patient was in her normal state of health all day yesterday and was out with the daughter doing things. Approximately an hour later her son came home to check on her and she was having complaints of numbness and tingling on her face, did not know the year, and was unable to say how many quarters were in a dollar. She was very different from her baseline. This resolved within a couple of hours. Patient denies any dysuria, she has chronic urinary frequency secondary to bladder prolapse. She denies any nausea or vomiting. She has not had any fevers at home. She was surprised to find that she had a UTI. We have a long discussion that I doubt she has a PCI significant enough to cause this level of altered mentation especially in the light of her facial numbness and tingling, even though the patient cannot tell me if it is one-sided. We'll proceed with stroke workup as patient is at high risk for stroke secondary to diabetes and hypertension. Daughter with stroke at 43. General: non toxic, no distress, appears at stated age Derm: warm, dry Head: atraumatic, normocephalic, symmetric Eyes: EOMI, no lid lag, anicteric sclera Mouth: no lip lesion, mucus membranes moist Cardiovascular: S1S2 reg, no murmur, positive posterior tibial pulse bilateral, Lungs: CTA bilateral, no rhonchi, no rales , no accessory muscle use Abdominal: soft, nontender to palpation, no guarding, no appreciable organomegaly Ext: no gross muscle atrophy, no edema, no contractures Neuro: CN II-XI grossly intact, muscle strength 5 out of 5 in bilateral upper and lower extremities, Babinski upgoing on the left lower extremity and downgoing on the right, light touch intact all 4 extremities and bilateral face. Patient is alert and oriented 3. She is able to name 2 objects. She spells the word world correctly forwards but backwards spells that DLroW. Finger to nose poor on the right, intact on the left. Psych: Alert, oriented, appropriate affect Possibe TIA VS CVA - echo, carotid, ASA, statin - neuro consult - tele - MRI Physical Exam Osteopathic Statement: *. No significant issues noted on an osteopathic structural exam other than those noted in the History and Physical/Consult. Vitals: Vital Signs Temp Pulse Pulse Resp BP BP Pulse Ox 03/10/21 08:00 85 16 03/10/21 07:00 97.9 F 85 16 141/77 96 03/10/21 02:37 98.1 F 97 16 152/90 97 03/10/21 01:47 70 17 154/75 97 03/10/21 00:15 97.8 F 03/09/21 23:50 107 H 19 184/87 98 Intake and Output 03/09/21 03/10/21 03/10/21 22:59 06:59 14:59 Intake Total 120 Balance 120 Intake: Oral 120 Other: Voiding Method Toilet # Voids 1 Weight 74.843 kg Results CBC & Chem 7: 03/10/21 00:03 03/10/21 00:03 Labs: Abnormal Lab Results - Last 24 Hours (Table) 03/10/21 03/10/21 03/10/21 Range/Units 00:03 00:03 00:03 RBC 5.61 H (3.80-5.40) m/uL Sodium 133 L (137-145) mmol/L Chloride 94 L (98-107) mmol/L BUN 27 H (7-17) mg/dL Glucose 211 H (74-99) mg/dL POC Glucose (mg/dL) (75-99) mg/dL Total Protein 8.4 H (6.3-8.2) g/dL Albumin 5.1 H (3.5-5.0) g/dL Urine Protein Trace H (Negative) Urine Glucose (UA) 4+ H (Negative) Ur Leukocyte Esterase Large H (Negative) Urine WBC 26 H (0-5) /hpf Urine Bacteria Occasional H (None) /hpf Urine Mucus Rare H (None) /hpf 03/10/21 Range/Units 07:31 RBC (3.80-5.40) m/uL Sodium (137-145) mmol/L Chloride (98-107) mmol/L BUN (7-17) mg/dL Glucose (74-99) mg/dL POC Glucose (mg/dL) 144 H (75-99) mg/dL Total Protein (6.3-8.2) g/dL Albumin (3.5-5.0) g/dL Urine Protein (Negative) Urine Glucose (UA) (Negative) Ur Leukocyte Esterase (Negative) Urine WBC (0-5) /hpf Urine Bacteria (None) /hpf Urine Mucus (None) /hpf Microbiology - Last 24 Hours (Table) 03/10/21 00:03 Urine Culture - Preliminary Urine,Voided
--- NOTE | 2021-03-10 13:55 | US ---
EXAMINATION TYPE: US carotid duplex BILAT DATE OF EXAM: 03/10/2021 COMPARISON: CT brain CLINICAL HISTORY: CVA. Facial weakness, mental confusion. EXAM MEASUREMENTS: RIGHT: Peak Systolic Velocity (PSV) cm/sec ----- Right CCA: 70.3 ----- Right ICA: 65.7 ----- Right ECA: 146.4 ICA/CCA ratio: 0.9 RIGHT: End Diastole cm/sec ----- Right CCA: 11.6 ----- Right ICA: 9.9 ----- Right ECA: 0.0 LEFT: Peak Systolic Velocity (PSV) cm/sec ----- Left CCA: 79.6 ----- Left ICA: 92.6 ----- Left ECA: 148.4 ICA/CCA ratio: 1.2 LEFT: End Diastole cm/sec ----- Left CCA: 12.4 ----- Left ICA: 0.0 ----- Left ECA: 0.0 VERTEBRALS (direction of flow): Right Vertebral: Antegrade Left Vertebral: Antegrade Rhythm: Arrhythmia Irregular, mixed plaque seen at bilateral carotid bifurcation with elevated PSV in bilateral ECA. IMPRESSION: 1. Extensive irregular plaque with no definite significant hemodynamic stenosis. 2. Cardiac dysrhythmia. Criteria for Assigning % of Stenosis / Diameter reduction (Estimation based on the indirect measurements of the internal carotid artery velocities (ICA PSV). 1. Normal (no stenosis)=ICA PSV < 125 cm/s: ratio < 2.0: ICA EDV<40 cm/s. 2. Less than 50% stenosis=ICA PSV < 125 cm/s: ratio < 2.0: ICA EDV<40 cm/s. 3. 50 to 69% stenosis=ICA PSV of 125 to 230 cm/s: ration 2.0 ? 4.0: ICA EDV 40-100 cm/s. 4. Greater than 70% stenosis to near occlusion= ICA PSV > 230 cm/s: ratio > 4.0: ICA EDV > 100 cm/s. 5. Near occlusion= ICA PSV velocities may be low or undetectable: variable ratio and ICA EDV. 6. Total occlusion=unable to detect flow.
--- NOTE | 2021-03-10 14:42 | P.CNNES ---
History of Present Illness Consult date: 03/10/21 Requesting physician: Vianca Ang Reason for Consult: TIA History of Present Illness: This is a 70-year-old woman with medical history of hypertension, non-insulin diabetes mellitus who presented emergency department on the 03/09/2021 with altered mental status. Some of the history is obtained from the patient daughter who is at bedside. Per patient's she stated that yesterday when she woke up at 8:00 in the morning she felt confused intermittently on and off until late at night yesterday. She notified the she was not herself and just was not feeling well could not expand. Per the patient daughter she stated that the patient the drove herself to the patient's daughter house and she felt the patient was quiet more than usual and she states that stated statement and was off but the daughter does not remember what she said. Then later just past 3:00 3:20 o'clock in the patient's daughter got a call from her brother and she stated that the the patient was complaining of numbness but could not say which side of the numbness in the patient forgets that she had numbness. EMS was contacted and the per the daughter she was not answering questions appropriately she did not know the year and she did not know how many quarters in the Dollar. But she knew the day. Patient stated that that she's feeling got better today compared to yesterday. Patient denies any urinary or bowel incontinence. Denies of any tongue soreness. She denies of any headache, nausea, vomiting, focal weakness, any ringing in the ears, visual disturbance. She denies of any further numbness. She denies of any history of stroke, seizure or TIA. Per the patient's daughter she stated that the patient has been unsteady walk-in since the patient had Covid in August 2020 as well as the having some memory issues repeating himself. Patient's of Covid 19 pneumonia in 2020. She denies being on any antiplatelets but is on pravastatin 40 mg daily at bedtime. Some of the workup in the hospital consisted of: Initial vital signs was blood pressure of 184/87, heart rate of 107, temperature of 97.8 Fahrenheit oral, respiratory of 19 and pulse ox of 98% room air. White blood cell is 9.6K. Sodium is 133, creatinine is 0.90, serum glucose 211, calcium is 10.2, AST of 22, ALT 19, ammonia is less than 9. Urinalysis is the leukocyte esterase was large, urine white blood cells 26 and urine bacteria was occasional. Kruger virus PCR was not detected. CT of the head is reported as negative unenhanced head CT scan. I Personally reviewed the CT of the head and I don't appreciate any acute or subacute ischemia and there is no intracranial hemorrhage Carotid duplex was reported as extensive irregular plaque with no definite of significant hemodynamic stenosis. Cardiac dysrhythmia. EKG is reported as normal sinus rhythm. Possible left atrial enlargement. Review of Systems Review of system: The 12 point system was reviewed and apparent positive and negative per HPI. Past Medical History Past Medical History: Asthma, Diabetes Mellitus, Hypertension History of Any Multi-Drug Resistant Organisms: None Reported Past Surgical History: Bladder Surgery, Hysterectomy Past Anesthesia/Blood Transfusion Reactions: No Reported Reaction Past Psychological History: No Psychological Hx Reported Smoking Status: Never smoker Past Alcohol Use History: None Reported Past Drug Use History: None Reported Medications and Allergies Home Medications Medication Instructions Recorded Confirmed Type Lisinopril-Hctz 20-25 mg 1 tab PO DAILY 10/12/17 03/10/21 History [Zestoretic 20-25] glipiZIDE [Glucotrol] 10 mg PO BID 10/12/17 03/10/21 History metFORMIN HCL [Glucophage] 1,000 mg PO W/SUPPER 09/10/19 03/10/21 History Pantoprazole [Protonix] 40 mg PO DAILY 03/10/21 03/10/21 History Pioglitazone [Actos] 30 mg PO DAILY 03/10/21 03/10/21 History Allergies Allergy/AdvReac Type Severity Reaction Status Date / Time Milk Containing Products Allergy CONGESTION Verified 03/10/21 10:03 [Dairy] Penicillins Allergy Rash/Hives Verified 03/10/21 10:03 Physical Examination - Vital Signs Vital Signs: Vital Signs Temp Pulse Pulse Resp BP BP Pulse Ox 03/10/21 08:00 85 16 03/10/21 07:00 97.9 F 85 16 141/77 96 03/10/21 02:37 98.1 F 97 16 152/90 97 03/10/21 01:47 70 17 154/75 97 03/10/21 00:15 97.8 F 03/09/21 23:50 107 H 19 184/87 98 Intake and Output 03/09/21 03/10/21 03/10/21 22:59 06:59 14:59 Intake Total 120 Balance 120 Intake: Oral 120 Other: Voiding Method Toilet # Voids 1 Weight 74.843 kg GENERAL: The patient is lying in bed and is not in acute distress. CHEST: The heart rate is regular rate rhythm. No murmurs to auscultation. No carotid bruit bilaterally. LUNG: Clear to auscultation bilaterally no wheezing noted throughout. Not labored breathing. ABDOMEN/GI: Bowel sounds present in all 4 quadrants. No tenderness to palpation throughout. NEUROLOGICAL: Higher mental function: The patient is awake, alert, oriented to self, place and time. Patient is following commands. No aphasia and no neglect. Cranial nerves: The pupils are round, equal and reactive to light and accommodation. Visual rahman are full to confrontation throughout. Extraocular movement is intact no nystagmus is noted. Facial sensation is normal to touch throughout. The facial strength is normal throughout. Hearing is normal bilaterally to hand rub. Tongue is midline and moved [id number] without any difficulty. No dysarthria is noted. Shoulder shrug is normal bilaterally. Motor: The strength is 5 over 5 throughout. Normal tone and bulk. Cerebellum: Normal finger to nose bilaterally. Sensation: Sensation is normal to touch throughout. Reflexes (right/left): 2+ throughout. Plantars is upgoing over the left toe without stimulation and had surgery on left toes (baseline) and mute over the right. Results - Laboratory Findings CBC and BMP: 03/10/21 00:03 03/10/21 00:03 Abnormal Lab Findings: Abnormal Labs 03/10/21 03/10/21 03/10/21 00:03 00:03 00:03 RBC 5.61 H Sodium 133 L Chloride 94 L BUN 27 H Glucose 211 H POC Glucose (mg/dL) Total Protein 8.4 H Albumin 5.1 H Urine Protein Trace H Urine Glucose (UA) 4+ H Ur Leukocyte Esterase Large H Urine WBC 26 H Urine Bacteria Occasional H Urine Mucus Rare H 03/10/21 07:31 RBC Sodium Chloride BUN Glucose POC Glucose (mg/dL) 144 H Total Protein Albumin Urine Protein Urine Glucose (UA) Ur Leukocyte Esterase Urine WBC Urine Bacteria Urine Mucus Assessment and Plan Assessment: Altered mental status with facial numbness. Encephalopathy of unknown etiology. Cannot rule out TIA. Mild acute ureter tract infection History of Covid 19 pneumonia in August 2020 Type 2 diabetes mellitus and the patient is a [id number] Hypertension Plan: MRI Brain, 2-D echo is ordered by the primary team is pending Patient was started on aspirin 325 daily along with Lipitor 80 mg for secondary stroke prophylaxis. Hemoglobin A1c and Lipid panel are ordered by the primary team is pending. Her TSH, vitamin B12 and folate level. Ordered the routine EEG. I'll not start the patient on antiepileptic drug unless there is epileptiform discharges or seizure on the EEG. Every 4 hours neuro checks Continue cardiac monitoring PT, OT and POLICY OFFICER are consulted. Will Defer the rest of the medical management to primary team For DVT prophylaxis the patient is on Lovenox. Upon discharge patient needs to follow-up with a neurologist outpatient within 1-2 weeks. Recommend neuropsych evaluation as outpatient for further evaluation of her memory. Plan was discussed with the patient and her daughter was at bedside. Thank you for the consultation. German Begum M.D. Neuro-hospitalist Time with Patient: Greater than 30
[2021-03-10] MEDS: ENOXAPARIN 40 MG/0.4 ML SYRINGE SQ SCH (15:40)
--- NOTE | 2021-03-10 17:37 | ECHOF ---
Referral Reason:Thrombus MEASUREMENTS -------- HEIGHT: 157.5 cm WEIGHT: 72.6 kg BP: IVSd: 0.7 cm (0.6 - 1.1) LVIDd: 3.6 cm (3.9 - 5.3) LVPWd: 0.9 cm (0.6 - 1.1) IVSs: 1.2 cm LVIDs: 1.7 cm LVPWs: 1.5 cm Ao Diam: 2.9 cm (2.0 - 3.7) AV Cusp: 1.9 cm (1.5 - 2.6) LA Diam: 2.1 cm (2.7 - 3.8) MV EXCURSION: 17.007 mm (> 18.000) MV EF SLOPE: 44 mm/s (70 - 150) EPSS: 1.9 cm AV maxP.98 mmHg AV meanP.95 mmHg RAP: 5.00 mmHg RVSP: 8.66 mmHg FINDINGS -------- Sinus rhythm. This was a technically adequate study. The left ventricular size is normal. Left ventricular wall thickness is normal. Overall left vent ricular systolic function is normal with, an EF between 55 - 60 %. The right ventricle is normal in size. The left atrial size is normal. The right atrial size is normal. Unable to visualize the septum. The aortic valve was not well visualized. Mild mitral annular calcification present. There is trace mitral regurgitation. The tricuspid valve appears structurally normal. Trace tricuspid regurgitation present. Right oumar tricular systolic pressure is normal at < 35 mmHg. The pulmonic valve was not well visualized. The aortic root size is normal. Normal inferior vena cava with normal inspiratory collapse consistent with estimated right atrial pre ssure of 5 mmHg. There is no pericardial effusion. CONCLUSIONS -------- 1. Left ventricular wall thickness is normal. 2. Overall left ventricular systolic function is normal with, an EF between 55 - 60 %. 3. The aortic valve was not well visualized. 4. There is trace mitral regurgitation. 5. Trace tricuspid regurgitation present. 6. There is no pericardial effusion. ORDER DISPATCHER: Kiara Alston, [facility]
[2021-03-10 17:47] LABS: Glucose,Whole Blood 138 mg/dL (75-99)
[2021-03-10] MEDS ORDERED: ATORVASTATIN 80 MG TAB PO SCH (21:00)
[2021-03-10 21:06] LABS: Glucose,Whole Blood 123 mg/dL (75-99)
[2021-03-10] MEDS: INSULIN ASPART (NovoLOG) 100 UNIT/ML VIAL SQ SCH ×2 (23:44→23:45)
[2021-03-11] MEDS ORDERED: PANTOPRAZOLE 40 MG TABLET PO SCH (07:30)
[2021-03-11 08:00] LABS: Glucose,Whole Blood 186 mg/dL (75-99)
[2021-03-11] MEDS ORDERED: ASPIRIN 325 MG TAB PO SCH (09:00)
[2021-03-11] MEDS: INSULIN ASPART (NovoLOG) 100 UNIT/ML VIAL SQ SCH ×3 (09:02→18:23)
[2021-03-11] MEDS: ENOXAPARIN 40 MG/0.4 ML SYRINGE SQ SCH (09:06)
[2021-03-11 09:29] LABS: Basophils # (A) 0.1 k/uL (0-0.2); Basophils % (A) 1 %; Eosinophils # (A) 0.1 k/uL (0-0.7); Eosinophils % (A) 1 %; HCT 42.9 % (34.0-46.0); Lymphocytes # (A) 1.5 k/uL (1.0-4.8); Lymphocytes % (A) 19 %; MCH 27.1 pg (25.0-35.0); MCHC 32.6 g/dL (31.0-37.0); MCV 83.2 fL (80.0-100.0); Mean Platelet Volume 7.7; Monocytes # (A) 0.5 k/uL (0-1.0); Monocytes % (A) 6 %; Neutrophils # (A) 5.4 k/uL (1.3-7.7); Neutrophils % (A) 71 %; Platelet Count 315 k/uL (150-450); RBC 5.15 m/uL (3.80-5.40); RDW 14.8 % (11.5-15.5); WBC 7.6 k/uL (3.8-10.6)
[2021-03-11 09:46] LABS: ALT 19 U/L (4-34); AST 26 U/L (14-36); African American GFR (CKD) >90 (>60 ml/min/1.73 sqM); Albumin 4.2 g/dL (3.5-5.0); Albumin/Globulin Ratio 1.4; Alkaline Phosphatase 46 U/L (38-126); Anion Gap 13 mmol/L; Blood Urea Nitrogen 19 mg/dL (7-17); Calcium 9.7 mg/dL (8.4-10.2); Carbon Dioxide 22 mmol/L (22-30); Chloride 102 mmol/L (98-107); Globulin 2.9 g/dL; Glucose 174 mg/dL (74-99); Magnesium 1.7 mg/dL (1.6-2.3); Non-African American GFR(CKD) 80 (>60 ml/min/1.73 sqM); Potassium 4.1 mmol/L (3.5-5.1); Sodium 137 mmol/L (137-145); Total Bilirubin 0.7 mg/dL (0.2-1.3); Total Protein 7.1 g/dL (6.3-8.2)
[2021-03-11 10:43] VITALS: BMI 30.2
--- NOTE | 2021-03-11 12:05 | P.PN ---
Subjective Progress Note Date: 03/11/21 Patient seen at bedside and she stated that she's doing well. Denies any neurological complaints. Objective - Vital Signs Vital signs: Vital Signs Temp 97.8 F 03/11/21 07:00 Pulse 104 H 03/11/21 08:00 Resp 16 03/11/21 08:00 BP 174/94 03/11/21 07:00 Pulse Ox 98 03/11/21 07:00 Intake & Output 03/10/21 03/11/21 03/11/21 18:59 06:59 18:59 Intake Total 120 Balance 120 Weight 74.843 kg Intake: Oral 120 Other: Voiding Method Toilet Toilet Toilet # Voids 1 2 - Exam GENERAL: The patient is lying in bed and is not in acute distress. NEUROLOGICAL: Higher mental function: The patient is awake, alert, oriented to self, place and time. Patient is following commands. No aphasia and no neglect. Cranial nerves: The pupils are round, equal and reactive to light and accommodation. Visual rahman are full to confrontation throughout. Extraocular movement is intact no nystagmus is noted. Facial sensation is normal to touch throughout. The facial strength is normal throughout. Hearing is normal bilaterally to hand rub. Tongue is midline and moved [id number]-jt-[id number] without any difficulty. No dysarthria is noted. Shoulder shrug is normal bilaterally. Motor: The strength is 5 over 5 throughout. Normal tone and bulk. Cerebellum: Normal finger to nose bilaterally. Sensation: Sensation is normal to touch throughout. Reflexes (right/left): 2+ throughout. Plantars is upgoing over the left toe without stimulation and had surgery on left toes (baseline) and mute over the right. WORK-UP: CT of the head is reported as negative unenhanced head CT scan. I Personally reviewed the CT of the head and I don't appreciate any acute or subacute ischemia and there is no intracranial hemorrhage Carotid duplex was reported as extensive irregular plaque with no definite of significant hemodynamic stenosis. Cardiac dysrhythmia. 2D echo was reported as left ventricle systolic function is normal with ejection fraction 55-60% TSH is 3.05 Serum folate is 7.50 Vitamin B-12 is 515. HA1c is 9.3 - Labs CBC & Chem 7: 03/11/21 08:10 03/11/21 08:10 Labs: Abnormal Lab Results - Last 24 Hours (Table) 03/10/21 03/10/21 03/10/21 Range/Units 00:03 17:46 21:05 BUN (7-17) mg/dL Glucose (74-99) mg/dL POC Glucose (mg/dL) 138 H 123 H (75-99) mg/dL Hemoglobin A1c 9.3 H (4.0-6.0) % 03/11/21 03/11/21 Range/Units 07:58 08:10 BUN 19 H (7-17) mg/dL Glucose 174 H (74-99) mg/dL POC Glucose (mg/dL) 186 H (75-99) mg/dL Hemoglobin A1c (4.0-6.0) % Microbiology - Last 24 Hours (Table) 03/10/21 00:03 Urine Culture - Preliminary Urine,Voided Assessment and Plan Assessment: Transient Altered mental status with facial numbness. Encephalopathy of unknown etiology. Cannot rule out TIA. Mild acute ureter tract infection History of Covid 19 pneumonia in August 2020 Type 2 diabetes mellitus and the patient is a krc-nqcyvyu-weqibtrdy Hypertension Plan: MRI Brain is ordered by the primary team is pending Pending routine EEG. I'll not start the patient on antiepileptic drug unless there is epileptiform discharges or seizure on the EEG. Continue aspirin 325 daily along with Lipitor 80 mg for secondary stroke prophylaxis. Lipid panel is pending. Since serum folate level is low normal I started the patient on the folic acid 1 mg daily. Every 4 hours neuro checks Continue cardiac monitoring PT, OT and [employer] are consulted. Will Defer the rest of the medical management to primary team For DVT prophylaxis the patient is on Lovenox. Upon discharge patient needs to follow-up with a neurologist outpatient within 1-2 weeks. Recommend neuropsych evaluation as outpatient for further evaluation of her memory. Plan was discussed with the patient. If her workup is normal patient is clear from a neurological perspective. German Begum M.D. Neuro-hospitalist Time with Patient: Less than 30
[2021-03-11 12:08] LABS: Glucose,Whole Blood 209 mg/dL (75-99)
[2021-03-11] MEDS ORDERED: FOLIC ACID 1 MG TAB PO SCH (12:15)
--- NOTE | 2021-03-11 12:35 | P.PN ---
<Francis Landaverde - Last Filed: 03/11/21 12:20> Subjective Progress Note Date: 03/11/21 History of Presenting Illness: Patient is a very pleasant 70-year-old female with a past medical history of hypertension and zvk-zszjpcp-ezbezznvd diabetes mellitus. She presented to the emergency department with a chief complaint of alteration in mental status. Patient reportedly began suddenly not feeling like herself yesterday morning and states this progressively seem to worsen throughout the day. Patient states that the best way to describe it is "I just felt confused and off, not like myself." Patient states she lives at home with her son and lpxoxyon-bf-dgg, walks with a cane, and lost her earlier this year to Covid 19 virus infection. Patient was seen and fully evaluated in the emergency department. CT head was completed and negative for acute intercranial process. CBC, coags, and liver profile unremarkable. BMP revealed mild hyponatremia with sodium of 133, mild hypochloremia with chloride of 94, prerenal azotemia with BUN of 27, and hyperglycemia with glucose of 211. Covid PCR negative. Urinalysis positive for glucose, ketones, leukocytes, and 26 WBCs. Patient admitted under our services with consultation to neurology. Physical exam: Patient seen and fully evaluated at the bedside this morning. She is awaiting evaluation by speech and language pathologist, MRI to be completed, and EEG to be completed. Echocardiogram completed yesterday afternoon normal findings with an EF of 55-60% and no significant valvular abnormalities reported. Patient continues to report resolution of symptoms and denies any complaints or concerns including headache, lightheadedness, dizziness, changes in vision or hearing, chest pain or palpitations, shortness of breath, dyspnea with exertion, abdominal pain or discomfort, or experiencing any numbness/tingling/weakness in her extremities. Currently awaiting EEG and MRI to be completed. Magnesium 1.7, replaced. Vital signs reviewed and stable. General: Nontoxic, no distress and appears stated age. Derm: Skin warm and dry, normal coloration for ethnicity. Head: Atraumatic, normocephalic and symmetric. Eyes: EOMs intact, no lid lag, and anicteric sclera Mouth: no lip lesions, mucus membranes moist Cardiovascular: regular rate and rhythm with normal S1S2, no murmur, positive posterior tibial pulses bilaterally, and cap refill < 2 seconds. Lungs: Respirations even, regular, and unlabored on room air. Lungs CTA bilaterally, no rhonchi, no rales, no wheezing, and no accessory muscle usage. Abdominal: soft, nontender to palpation, no guarding, no appreciable organomegaly Ext: ROM intact. No gross muscle atrophy, no edema, no contractures Neuro: Speech clear, face symmetrical and CN II-XII grossly intact with no noted focal neuro deficits Psych: Alert and oriented to person, place, time, and situation. Appropriate and pleasant affect. Assessment and Plan of Care: Acute encephalopathy secondary to unclear etiology, possibly secondary to underlying UTI versus TIA Facial numbness/tingling, resolved We will work patient up for possible TIA and treat for mild UTI. Echocardiogram normal findings with an EF of 55-60% and no significant valvular abnormalities reported. Carotid Dopplers revealing extensive irregular plaque with no definite significant hemodynamic stenosis and cardiac dysrhythmia. Confirmed with telemetry pt has been sinus rhythm and has had occassional PVCs and PACs, no arrythmias reported. MRI brain to be completed Awaiting EEG to be completed Neurology following Neuro checks every 4 hours Aspirin 325 mg by mouth daily along with atorvastatin 80 mg nightly DVT prophylaxis with Lovenox Treatment of underlying UTI with Rocephin 1 g daily pending urine culture results. Bladder management. Hypomagnesemia Magnesium 1.7, replaced We will continue to monitor with repeat a.m. labs. Type II wvm-tpbxjvi-vffzupfwm diabetes mellitus with hyperglycemia Hold glipizide, metformin, and Actos. Place patient on glycemic protocol with NovoLog sliding scale. Hemoglobin A1c with a.m. labs. Prerenal azotemia with BUN of 27 -Patient received gentle hydration with IV fluids, we will continue to monitor and reevaluate function with a.m. labs. Pseudohyponatremia, sodium 133 glucose 211 corrected sodium 135 Hypertension Monitor vital signs and continue daily medication regimen with lisinopril. CODE STATUS: Full code DVT prophylaxis: Lovenox Discussed with: Patient and RN Anticipated discharge date: Clinical course to determine Anticipated discharge place: Home A total of 45 minutes was spent on the care of this complex patient more than 50% of the time was spent in counseling and care coordination. Objective - Vital Signs Vital signs: Vital Signs Temp 97.8 F 03/11/21 07:00 Pulse 104 H 03/11/21 07:00 Resp 16 03/11/21 07:00 BP 174/94 03/11/21 07:00 Pulse Ox 98 03/11/21 07:00 Intake & Output 03/10/21 03/11/21 03/11/21 18:59 06:59 18:59 Intake Total 120 Balance 120 Intake: Oral 120 Other: Voiding Method Toilet Toilet # Voids 1 2 - Labs CBC & Chem 7: 03/11/21 08:10 03/11/21 08:10 Labs: Abnormal Lab Results - Last 24 Hours (Table) 03/10/21 03/10/21 03/10/21 Range/Units 00:03 17:46 21:05 POC Glucose (mg/dL) 138 H 123 H (75-99) mg/dL Hemoglobin A1c 9.3 H (4.0-6.0) % 03/11/21 Range/Units 07:58 POC Glucose (mg/dL) 186 H (75-99) mg/dL Hemoglobin A1c (4.0-6.0) % Microbiology - Last 24 Hours (Table) 03/10/21 00:03 Urine Culture - Preliminary Urine,Voided <Vianca Ang - Last Filed: 03/11/21 13:50> Subjective Patient seen and examined independently. Patient was also seen by Francis Landaverde NP and case was discussed. I am in agreement with subjective, physical exam, assessment and plan as written above and amended below. Patient seen and examined at bedside. No repeat episodes of confusion. No chest pain, shortness of breath, no unusual numbness or tingling, no weakness. Wants to go home she has a craft show tomorrow. General: , no distress, appears at stated age Derm: warm, dry Head: atraumatic, normocephalic, symmetric Eyes: EOMI, no lid lag, anicteric sclera Mouth: no lip lesion, mucus membranes moist Cardiovascular: S1S2 reg, no murmur, positive posterior tibial pulse bilateral, Lungs: CTA bilateral, no rhonchi, no rales , no accessory muscle use Abdominal: soft, nontender to palpation, no guarding, no appreciable organomegaly Ext: no gross muscle atrophy, no edema, no contractures Neuro: CN II-XI grossly intact, no focal neuro deficits Psych: Alert, oriented, appropriate affect Currently awaiting MRI and EEG. Also awaiting lipid profile. Objective - Vital Signs Vital signs: Vital Signs Temp 97.8 F 03/11/21 07:00 Pulse 104 H 03/11/21 08:00 Resp 16 03/11/21 08:00 BP 174/94 03/11/21 07:00 Pulse Ox 98 03/11/21 07:00 Intake & Output 03/10/21 03/11/21 03/11/21 18:59 06:59 18:59 Intake Total 120 Balance 120 Weight 74.843 kg Intake: Oral 120 Other: Voiding Method Toilet Toilet Toilet # Voids 1 2 - Labs CBC & Chem 7: 03/11/21 08:10 03/11/21 08:10 Labs: Abnormal Lab Results - Last 24 Hours (Table) 03/10/21 03/10/21 03/10/21 Range/Units 00:03 17:46 21:05 BUN (7-17) mg/dL Glucose (74-99) mg/dL POC Glucose (mg/dL) 138 H 123 H (75-99) mg/dL Hemoglobin A1c 9.3 H (4.0-6.0) % 03/11/21 03/11/21 03/11/21 Range/Units 07:58 08:10 12:07 BUN 19 H (7-17) mg/dL Glucose 174 H (74-99) mg/dL POC Glucose (mg/dL) 186 H 209 H (75-99) mg/dL Hemoglobin A1c (4.0-6.0) % Microbiology - Last 24 Hours (Table) 03/10/21 00:03 Urine Culture - Final Urine,Voided
[2021-03-11] MEDS ORDERED: LISINOPRIL-HCTZ 20-25 MG 1 EACH TAB PO SCH (13:07)
[2021-03-11] MEDS: MAGNESIUM SULFATE-D5W PMX 1 GM in DEXTROSE/WATER 1 100ML.BAG IVPB SCH ×2 (13:09→15:03)
[2021-03-11 15:06] VITALS: BP 138/80; PULSE 91; RESP 18; TEMP 98.7
--- NOTE | 2021-03-11 15:30 | EEG ---
ELECTROENCEPHALOGRAM REPORT DATE OF SERVICE: 03/11/2021. CLINICAL HISTORY: This is a 70-year-old who woman with a brief episode of altered mental status. The video EEG is obtained to evaluate for seizure and epileptiform discharges. Relevant medication: The patient is not on any antiepileptic drugs. EEG TYPE: A routine 21-channel EEG is performed with video using the 10/20 electrode placement system. DESCRIPTION: Awake and drowsy states are obtained. During awake state, the background consists of low voltage of 9-10 hertz activity. There is no physiological stage II sleep architecture seen. There is no focal slowing. Interictal and ictal is none. ACTIVATION PROCEDURE: Photic stimulation did evoke a posterior driving response at multiple low flash frequencies. There is no abnormality during the photic stimulation. Hyperventilation was not performed. CLINICAL INTERPRETATION: This is a normal routine EEG. There are no focal slowing, epileptiform discharges or seizure on the EEG. Clinical correlation is recommended. NATHAN / PRICILLA: [id number] / SHARON
[2021-03-11 16:16] LABS: Chol/HDL Ratio 5.38 Ratio; LDL Cholesterol,Calculated 155.8 mg/dL (0.0-131.0)
--- NOTE | 2021-03-11 16:29 | MR ---
EXAMINATION TYPE: MR brain wo/w con DATE OF EXAM: 03/11/2021 COMPARISON: CT brain from yesterday. HISTORY: CVA, TIA. Altered mental status. TECHNIQUE: Multiplanar, multisequence images of the brain and brainstem is performed without and with IV contras t, utilizing 7.5 mL intravenous Gadavist . FINDINGS: Diffusion weighted images demonstrate no evidence of a recent infarct or other diffusion ab normality. There is mild to moderate ventricular and sulcal prominence. Scattered foci of T2 hyperin tensity throughout the white matter bilaterally are present. Approximately 30-40 scattered lesions ar e seen. Midline structures demonstrate normal morphology. The craniocervical junction appears within normal limits. Post contrast images demonstrate no abnormal enhancement. The dural venous sinuses appear pa tent. The visualized sinuses are clear and the globes are intact. IMPRESSION: No MRI evidence for a recent infarct. Cula-uu-cfrigngr diffuse cerebral atrophy and chron ic small vessel ischemic changes redemonstrated.
[2021-03-11 17:20] LABS: Glucose,Whole Blood 209 mg/dL (75-99)
--- NOTE | 2021-03-11 17:54 | P.DS ---
Providers Date of admission: 03/10/21 01:23 Expected date of discharge: 03/11/21 Attending physician: Erasmo Brewer Consults: 03/10/21 12:58 Consult Physician Routine Consulting Provider: German Begum Consult Reason/Comments: TIA Do you want consulting provider notified?: Yes Primary care physician: Alexys Hurley [place] Hospital Course: Discharge Diagnosis: TIA Metabolic Encephalopathy Hyperlipidemia DM 2 with hyperglycemia A1C 9.3 Hypomagnesemia Dehydration Pseudohyponatremia due to Hyperglycemia UTI, ruled out with negative culture Hospital Course: Patient is a very pleasant 70-year-old female with a past medical history of hypertension and npa-tjupzbt-sfkegprsn diabetes mellitus. She presented to the emergency department with a chief complaint of alteration in mental status. Patient reportedly began suddenly not feeling like herself yesterday morning and states this progressively seem to worsen throughout the day. Patient states that the best way to describe it is "I just felt confused and off, not like myself." Patient states she lives at home with her son and zbojtnmx-gq-wla, walks with a cane, and lost her earlier this year to Covid [address] head was completed and negative for acute intercranial process. CBC, coags, and liver profile unremarkable. BMP revealed mild hyponatremia with sodium of 133, mild hypochloremia with chloride of 94, prerenal azotemia with BUN of 27, and hyperglycemia with glucose of 211. Covid PCR negative. Urinalysis positive for glucose, ketones, leukocytes, and 26 WBCs. Patient admitted under our services with consultation to neurology. Urine culture showed normal olvin and she was take off antibiotics. She underwent b/l carotid dopplers which showed no significant stenosis. MRI Brain revealed no ischemic stroke but age- related atrophy. Echo showed preserved EF at 55% and no thrombus. EEG showed no seizure activity. A1C was significantly elevated at 9.3 and her LDL was 150. She was started on Aspirin and statin. She will discuss with Dr. Hurley if changes should be made to her diabetic regiment. Patient Condition at Discharge: Fair Plan - Discharge Summary Discharge Rx Participant: Yes New Discharge Prescriptions: New Atorvastatin [Lipitor] 80 mg PO HS #30 tab Aspirin EC [Ecotrin Low Dose] 81 mg PO DAILY #30 tab Folic Acid 1 mg PO DAILY #30 tab Continue glipiZIDE [Glucotrol] 10 mg PO BID Lisinopril-Hctz 20-25 mg [Zestoretic 20-25] 1 tab PO DAILY metFORMIN HCL [Glucophage] 1,000 mg PO W/SUPPER Pantoprazole [Protonix] 40 mg PO DAILY Pioglitazone [Actos] 30 mg PO DAILY Empagliflozin [Jardiance] 25 mg PO HS Discharge Medication List Lisinopril-Hctz 20-25 mg [Zestoretic 20-25] 1 tab PO DAILY 10/12/17 [History] glipiZIDE [Glucotrol] 10 mg PO BID 10/12/17 [History] metFORMIN HCL [Glucophage] 1,000 mg PO W/SUPPER 09/10/19 [History] Pantoprazole [Protonix] 40 mg PO DAILY 03/10/21 [History] Pioglitazone [Actos] 30 mg PO DAILY 03/10/21 [History] Aspirin EC [Ecotrin Low Dose] 81 mg PO DAILY #30 tab 03/11/21 [Rx] Atorvastatin [Lipitor] 80 mg PO HS #30 tab 03/11/21 [Rx] Empagliflozin [Jardiance] 25 mg PO HS 03/11/21 [History] Folic Acid 1 mg PO DAILY #30 tab 03/11/21 [Rx] Follow up Appointment(s)/Referral(s): Sampson Aviles MD [REFERRING] - 2 Weeks Alexys Hurley DO [Primary Care Provider] - 1-2 days Activity/Diet/Wound Care/Special Instructions: Activity: as tolerated Diet: consistent carb, heart healthy Special Instructions: Your Cholesterol is very high, your cholesterol medications have been changed, you need to follow closely with Dr. Hurley. Your A1C (3 month blood sugar test) is 9.3 and your medications may need to be adjusted depending on if this is getting better or worse. Check Blood sugar once daily at the morning and create a log for Dr. Hurley Discharge Disposition: HOME SELF-CARE
[2021-03-12] MEDS ORDERED: LISINOPRIL-HCTZ 20-25 MG 1 EACH TAB PO SCH (09:00)
== END 2021-03-11 18:32 | disposition home or self-care (01) ==
LOC: EC 23:47 → 6NMEDSUR 03-10 01:23
PROVIDERS: ADMIT Internal Medicine Geriatric Medicine; ATTEND Internal Medicine Geriatric Medicine
DX: G45.9 Transient cerebral ischemic attack, unspecified (principal); G93.41 Metabolic encephalopathy; E78.5 Hyperlipidemia, unspecified; E11.65 Type 2 diabetes mellitus with hyperglycemia; E83.42 Hypomagnesemia; E86.0 Dehydration; E87.8 Other disorders of electrolyte and fluid balance, not elsewhere classified; R79.89 Other specified abnormal findings of blood chemistry; I10 Essential (primary) hypertension; J45.909 Unspecified asthma, uncomplicated; E66.9 Obesity, unspecified; Z68.30 Body mass index [BMI] 30.0-30.9, adult; Z20.822 Contact with and (suspected) exposure to COVID-19; Z87.01 Personal history of pneumonia (recurrent); Z86.16 Personal history of COVID-19; Z87.440 Personal history of urinary (tract) infections; Z79.84 Long term (current) use of oral hypoglycemic drugs; Z79.899 Other long term (current) drug therapy; Z71.9 Counseling, unspecified; Z91.011 Allergy to milk products; Z88.0 Allergy status to penicillin; Z90.710 Acquired absence of both cervix and uterus; Z82.3 Family history of stroke; N81.10 Cystocele, unspecified
CPT/HCPCS: 96365; 96366; 96367; 96372 ×2; 96361; 99285; 36415; 95816; 93005; 93306; 97161; 97165; 92610; 92523; 83880; 80061; 80053 ×2; 84443; 82607; 82140; 82746; 83605; 83735; 84484; 85025 ×2; 85610; 85730; 81001; 87086; 83036; 87635; 71046; 93880; 70450; 70553; G0378 ×2; J0696 ×2; J1650 ×2; J3475; A9585

== ENCOUNTER → 2021-04-19 | Outpatient (CLI) | payer MEDICARE ==
--- NOTE | 2021-05-30 17:30 | P.CEMON ---
Event monitor shows sinus rhythm with PVCs Occasional ventricular couplets No nonsustained/sustained ventricular tachycardia
--- NOTE | 2021-06-01 14:16 | EM ---
Event monitor shows sinus rhythm with PVCs Occasional ventricular couplets No nonsustained/sustained ventricular tachycardia MTDD
== END | disposition home or self-care (01) ==
LOC: RADECHMAIN 11:51
PROVIDERS: ATTEND Family Medicine
DX: I49.3 Ventricular premature depolarization (principal); R00.8 Other abnormalities of heart beat
CPT/HCPCS: 93270

== ENCOUNTER → 2021-06-13 | Outpatient (CLI) | payer MEDICARE ==
[2021-06-13 13:15] VITALS: BP 113/74; PULSE 77; RESP 18; TEMP 97.9
--- NOTE | 2021-06-13 13:27 | P.CON ---
Consult Note - . Consult date: 06/13/21 Assessment/Plan:: HISTORY OF PRESENT ILLNESS: 70 -year-old female with daughter at side as a referral from Dr. Chase presents today with neck pain for an evaluation. States her neck pain is in the middle to lower half of her neck in a standing character for the last year with radiation of shooting pain and numbness to the right shoulder, right upper extremity and right hand. Pain level is 1 out of 10 in intensity, dull and achy in the neck. It escalates as high as 10 out of 10 in intensity with activities such as rotation and forward flexion of the neck and lifting with the right upper extremity. Pain is alleviated with medications, medication topicals, ice, heat, physical therapy 1-1/2 years ago, chiropractic treatments weekly, home exercise regimen as tolerated, massage, leaning on the right side and rest. PMH: Hypertension, diabetes, asthma PSH: Hysterectomy, bladder suspension, breast biopsy, PVCs SH: Negative 3. Lives with son. one year ago due to covid FH: Noncontributory All: See list Meds: See list REVIEW OF ORGAN SYSTEMS: CONSTITUTIONAL: No fevers or chills. No recent weight loss. HEENT: No visual acuity loss, eye pain, difficulties with hearing. No nosebleeds. No difficulty swallowing. RESPIRATORY: Denies any troubles with breathing or dyspnea on exertion. CARDIOVASCULAR: Denies any chest pain, palpitations, or recent heart attacks. GASTROINTESTINAL: Denies fatty food intolerance. Has change in bowel habits and gas bloat. GENITOURINARY: Denies any blood in urine. Has increased urinary frequency. NEUROLOGICAL: + numbness and tingling along the distal extremities. No seizure disorders or headaches. MUSCULOSKELETAL: + back pain SKIN: No skin cancer. No rash. PSYCHIATRIC: Denies current depression or suicidal thoughts. ENDOCRINE: Denies current thyroid disorders. Denies any blood sugar glucose intolerance. HEME/LYMPHATIC: Denies any lumps and bumps around the neck. History of deep venous thrombosis. ALLERGY/IMMUNOLOGY: No immunoglobulin therapy. No immune deficiencies. BREAST: Denies current breast lumps, pain or nipple discharge. Physical Examinations : Constitutional : Cooperative , not in acute distress . HEENT: Neck supple. No Lymphadenopathy. Normal thyroid size . Eyes no ptosis , no icterus, no photophobia . Hearing intact. Normal oropharynx. No Thrush. Respiratory : Chest clear to auscultations bilaterally. No wheezing. No rhonchi. Cardiovascular : Regular rate and rhythm , S1 / S2. No S3 . No S4. Gastrointestinal : Abdomen soft. No tenderness. Bowel sounds x 4. No organomegaly . Genitourinary : Deferred. Neurologic : Cranial nerve II to XII intact. No focal neurological deficits. Psychiatric : alert & oriented x 3. Matching mood & appropriate affect. Judgment & insight intact. Lymphatic No Lymphadenopathy. Musculoskeletal : Cervical Spine Motor strength in the deltoid and biceps: Normal right side. Normal Left side Motor strength biceps and the wrist extensors: Normal right side . Normal left side Motor strength in the triceps muscle: Normal right side. Normal left side Deep tendon reflexes: Normal at the biceps. Normal at Brachioradialis. Normal at triceps Moderate vertebral body tenderness to palpation over the C4, C5 and C6 vertebral bodies Cervical facet loading test: positive bilaterally Spurling test: positive Neck distraction test: positive David sign: positive bilaterally Lumbar spine Motor strength lower extremities ,thigh and legs 5/5 Right side , 5/5 Left side Deep tendon reflexes : Normal Knee Jerk. Normal Ankle Jerk Lumbar facet Loading Test: positive Right / positive Left Range of motion of the lumbar spine Flexion 30 degrees, extension 10 degrees Straight Leg Raise test: Left/ Right positive at degree Abhi test: positive right / positive left. Severe tenderness over the Sacroiliac joint on the Right / Left sides Gaenslen test: positive bilaterally Seated flexion test: positive bilaterally. Imaging: MRI of the cervical spine from 07/07/2020 reviewed Assessment/ Plan : Cervical spondylosis of C4 to C6, degenerative disc disease, spinal stenosis, multilevel disc bulges, facet arthropathy Recommendation of CIRO at the C3-C4 Risks, benefits of procedure discussed and patient verbalized understanding Discontinue Plavix and aspirin 7 days prior to procedure May need repeat procedures based on response to treatment I have spent greater than 50 minutes on patient care today. Dr Calhoun was available by phone for the evaluation of this patient. The time was used to review the medical records including relevant urine studies and Prescription history (MAPs), review of the available imaging, evaluation and examination of the patient, coordination of care with the medical staff and if applicable referring physicians, as well as creation of the medical record PQRS Measure Charge Sheet Mode of Arrival: Ambulatory - Pain Location Lower Medial Neck Non-Pharmacological Interventions: Heat, Ice, Inactivity, Physical Therapy, Position/Reposition Pharmacological Interventions: PRN Medication, Topical Medication PQRS Narrative: Blood Pressure 113/74 Pain Intensity [Lower Medial 1 Neck] Scale Used Numeric (1 - 10) Hx Alcohol Use (MH) No Home Medications: Ambulatory Orders Lisinopril-Hctz 20-25 mg [Zestoretic 20-25] 1 tab PO DAILY 10/12/17 glipiZIDE [Glucotrol] 10 mg PO BID 10/12/17 metFORMIN HCL [Glucophage] 1,000 mg PO W/SUPPER 09/10/19 Pantoprazole [Protonix] 40 mg PO DAILY 03/10/21 Pioglitazone [Actos] 30 mg PO DAILY 03/10/21 Aspirin EC [Ecotrin Low Dose] 81 mg PO DAILY #30 tab 03/11/21 Atorvastatin [Lipitor] 80 mg PO HS #30 tab 03/11/21 Empagliflozin [Jardiance] 25 mg PO HS 03/11/21 Folic Acid 1 mg PO DAILY #30 tab 03/11/21 Clopidogrel [Plavix] 06/13/21 Metoprolol Succinate [Kapspargo Sprinkle] 06/13/21 Montelukast Sodium [Montelukast Sodium Chew] 06/13/21
== END ==
LOC: PNWHC3 12:22
PROVIDERS: ATTEND Physician Assistant Medical
DX: M47.812 Spondylosis without myelopathy or radiculopathy, cervical region (principal); M50.30 Other cervical disc degeneration, unspecified cervical region; M48.02 Spinal stenosis, cervical region; Z91.011 Allergy to milk products; Z88.0 Allergy status to penicillin
CPT/HCPCS: 99211

== ENCOUNTER → 2021-10-17 | Outpatient (CLI) | payer MEDICARE ==
--- NOTE | 2021-10-17 20:31 | CT ---
EXAMINATION TYPE: CT chest wo/w con DATE OF EXAM: 10/17/2021 COMPARISON: CT dated 01/15/2017 HISTORY: Cough CT DLP: 803.6 mGycm Automated exposure control for dose reduction was used. TECHNIQUE: CT scan of the chest is performed without and with IV Contrast, patient injected with 80 mL of Isovue 300. FINDINGS: LUNGS: Stable right apical pleural-based focal scarring. Stable 5.7 mm nodule at the posterior aspect of the right lower lobe. Unchanged 5 mm nodule in the left upper lobe. Stable 3 mm nodule in the rig ht upper lobe. Subtle mosaic perfusion pattern of the lungs, nonspecific. Unremarkable lungs otherwis e. Patent trachea and main bronchi. No pleural effusion. MEDIASTINUM: There are no greater than 1 cm hilar or mediastinal lymph nodes. Mild cardiomegaly. Blessing rial and coronary atherosclerotic calcifications. No pericardial effusion is seen. OTHER: Right thyroid lobe millimetric hypodensity, please correlate with thyroid ultrasound results. Suspected hepatic steatosis and subcentimeter cyst at the anterior aspect of the left hepatic lobe. Osteopenia. Degenerative changes of the thoracic spine. IMPRESSION: Stable scattered pulmonary nodules since 2017 CT scan consistent with benign nodules and requiring no further follow-up. Subtle mosaic perfusion pattern of the lungs, nonspecific and could be related to small airway diseas e or chronic thromboembolic pulmonary hypertension. Recommend clinical correlation and further workup . Other incidental findings as described above.
== END | disposition home or self-care (01) ==
LOC: RADCTMAIN 11:19
PROVIDERS: ATTEND Family Medicine
DX: R91.8 Other nonspecific abnormal finding of lung field (principal)
CPT/HCPCS: 82565; 84520; 71270; 36415; Q9967

== ENCOUNTER → 2022-02-03 | Outpatient (CLI) | payer MEDICARE ==
--- NOTE | 2022-02-06 09:35 | MM ---
Reason for Exam: Screening (asymptomatic). Last mammogram was performed 3 year(s) and 2 month(s) ago. Patient History: Menarche at age 12. First Full-Term at age 22. Hysterectomy at age 28. Postmenopausal. Estrogen for 3 years from age 50 until age 53. 1998, Core Biopsy on the Left side. Mother had breast cancer, age 70. Risk Values: Lucita 5 year model risk: 4.0%. NCI Lifetime model risk: 10.1%. Prior Study Comparison: 07/20/2009 Right Diagnostic Mammogram, [facility]. 05/18/2015 Screening Mammogram, [facility]. 12/03/2018 Bilateral Screening Mammogram, [facility]. Tissue Density: The breast tissue is heterogeneously dense. This may lower the sensitivity of mammography. Findings: Analyzed By CAD. There is no suspicious group of microcalcifications or new suspicious mass in either breast. Benign-appearing calcifications within both breasts. Stable chronic nodularity within both breasts. No significant change from prior exams. Overall Assessment: Benign, BI-RAD 2 Management: Screening Mammogram of both breasts in 1 year. A clinical breast exam by your physician is recommended on an annual basis and results should be correlated with mammographic findings. Electronically signed and approved by: Mario Virk D.O.
== END | disposition home or self-care (01) ==
LOC: RADMAMWWP 10:23
PROVIDERS: ATTEND Family Medicine
DX: Z12.31 Encounter for screening mammogram for malignant neoplasm of breast (principal); Z80.3 Family history of malignant neoplasm of breast; Z78.0 Asymptomatic menopausal state
CPT/HCPCS: 77063; 77067

== ENCOUNTER → 2024-01-11 | Outpatient (CLI) | payer MEDICARE ==
--- NOTE | 2024-01-11 13:13 | XR ---
EXAMINATION TYPE: XR abdomen 2V DATE OF EXAM: 01/11/2024 CLINICAL DATA: 73-year-old female, PHH. K58.1 XR ABD COMPLETE. Gas pains, IBS for 6 years, pain wors ening recently COMPARISON: None FINDINGS: Lung bases are clear. There is moderate stool burden with air and stool extending distally to the rectum. No dilated small bowel. A few small pelvic phleboliths. IMPRESSION: 1. Moderate stool burden may reflect constipation. 2. Nonobstructive bowel gas pattern. [facility] 01/11/2024 1:09 PM
== END | disposition home or self-care (01) ==
LOC: RADXRMAIN 11:03
PROVIDERS: ATTEND Internal Medicine Gastroenterology
DX: K58.1 Irritable bowel syndrome with constipation (principal)
CPT/HCPCS: 74019